=== PATIENT | male | born 1960 | race Hispanic/Latino ===

== ENCOUNTER 2020-03-19 13:41 | Emergency (ER) | payer MEDICAID ==
--- NOTE | 2020-03-19 14:20 | Emergency Department Report ---
Blank Doc - Documentation Documentation: 60-year-old male that presents with depression and stated has not slept for 2 days. HX of psych. Denies any SI/HI. This initial assessment/diagnostic orders/clinical plan/treatment(s) is/are subject to change based on patient's health status, clinical progression and re-assessment by fellow clinical providers in the ED. Further treatment and workup at subsequent clinical providers discretion. Patient/guardians urged not to elope from the ED as their condition may be serious if not clinically assessed and managed. Initial orders include: 1- Patient sent to Main ED for further evaluation and treatment 2- psych workup
[2020-03-19 16:05] LABS: Basophils # (Auto) 0.1 K/mm3 (0.0-0.1); Basophils % (Auto) 0.9 % (0.0-1.8); Eosinophils # (Auto) 0.5 K/mm3 (0.0-0.4); Eosinophils % (Auto) 6.7 % (0.0-4.3); Hematocrit 38.1 % (35.5-45.6); Hemoglobin 12.8 gm/dl (11.8-15.2); Lymphocytes # (Auto) 1.9 K/mm3 (1.2-5.4); Lymphocytes % (Auto) 27.2 % (13.4-35.0); Mean Corpuscular HGB Conc 34 % (32-34); Mean Corpuscular Volume 93 fl (84-94); Monocytes # (Auto) 0.8 K/mm3 (0.0-0.8); Monocytes % (Auto) 11.7 % (0.0-7.3); Platelet Count 247 K/mm3 (140-440); Red Blood Count 4.08 M/mm3 (3.65-5.03); Red Cell Distribution Width 13.4 % (13.2-15.2)
[2020-03-19 16:28] LABS: BUN/Creatinine Ratio 11; Blood Urea Nitrogen 9 mg/dL (9-20); Calcium 10.3 mg/dL (8.4-10.2); Hemolysis Index 7
--- NOTE | 2020-03-19 23:21 | Emergency Department Report ---
ED General Adult HPI - General Chief complaint: Medical Clearance Stated complaint: HARD TIME SLEEPING/PSYCH MEDS Time Seen by Provider: 03/19/20 14:18 Source: patient Mode of arrival: Ambulatory Limitations: No Limitations - History of Present Illness Initial comments: 60 yo M, hx of schizophrenia, presents to ED with complaint of insomnia. Pt states he ran out of the medication that he was taking to help him sleep. Denies SI/ HI, hallucinations. Pt reports that he does have a psychiatrist that he sees. -: days(s) (2), unknown Severity scale (0 -10): 0 Consistency: constant Improves with: medication Worsens with: none Associated Symptoms: denies other symptoms Treatments Prior to Arrival: none - Related Data Allergies Allergy/AdvReac Type Severity Reaction Status Date / Time No Known Allergies Allergy Unverified 03/19/20 14:04 ED Review of Systems ROS: Stated complaint: HARD TIME SLEEPING/PSYCH MEDS Other details as noted in HPI Comment: All other systems reviewed and negative Psychiatric: other (reports insomnia). denies: auditory hallucinations, visual hallucinations, homicidal thoughts, suicidal thoughts ED Past Medical Hx - Past Medical History Previous Medical History?: Yes Hx Psychiatric Treatment: Yes (schizophrenia) - Social History Smoking Status: Never Smoker Substance Use Type: None ED Physical Exam - General Limitations: No Limitations General appearance: alert, in no apparent distress - Head Head exam: Present: atraumatic, normocephalic - Eye Eye exam: Present: normal appearance, EOMI - ENT ENT exam: Present: mucous membranes moist - Neck Neck exam: Present: normal inspection - Respiratory Respiratory exam: Present: normal lung sounds bilaterally. Absent: respiratory distress - Cardiovascular Cardiovascular Exam: Present: regular rate, normal rhythm - GI/Abdominal GI/Abdominal exam: Absent: distended - Extremities Exam Extremities exam: Present: normal inspection - Neurological Exam Neurological exam: Present: alert, oriented X3, other (resting tremor noted) - Psychiatric Psychiatric exam: Present: normal affect, normal mood. Absent: homicidal idea tion, suicidal ideation - Skin Skin exam: Present: warm, dry, intact, normal color ED Course Vital Signs 03/19/20 03/19/20 03/19/20 14:14 14:19 23:15 Temperature 98.4 F 98.4 F 97.9 F Pulse Rate 69 69 74 Respiratory 20 18 18 Rate Blood Pressure 159/83 Blood Pressure 159/83 122/75 [Right] O2 Sat by Pulse 99 100 97 Oximetry ED Medical Decision Making - Lab Data Result diagrams: 03/19/20 15:06 03/19/20 15:06 - Medical Decision Making Pt reports insomnia. No SI, HI, or hallucinations. Advised to f/u as outpt w/ his psychiatrist. - Differential Diagnosis insomnia Critical care attestation.: If time is entered above; I have spent that time in minutes in the direct care of this critically ill patient, excluding procedure time. ED Disposition Clinical Impression: Insomnia Disposition: DC-01 TO HOME OR SELFCARE Is pt being admited?: No Condition: Stable Instructions: Insomnia (ED) Referrals: PRIMARY CARE, [[facility] Care Provider[facility] Time of Disposition: 23:20
[2020-03-20 08:51] VITALS: BP 132/86
== END 2020-03-20 10:56 | disposition home or self-care (01) ==
LOC: ED 13:41
DX: G47.00 Insomnia, unspecified (principal); F20.9 Schizophrenia, unspecified
CPT/HCPCS: 36415; 80048; 80320; 85025; G0480

== ENCOUNTER 2022-04-12 16:02 | Emergency (ER) | payer MEDICAID ==
[2022-04-12 17:57] VITALS: BP 144/96
--- NOTE | 2022-04-12 19:56 | Event Note ---
ED Screening Note ED Screening Note: comes to ER this bianca for assistance with living arrangement no medical complaints no medical emergency This initial assessment/diagnostic orders/clinical plan/treatment(s) is/are subject to change based on patients health status, clinical progression and re- assessment by fellow clinical providers in the ED. Further treatment and workup at subsequent clinical providers discretion. Patient/guardian urged not to elope from the ED as their condition may be serious if not clinically assessed and managed. Initial orders include: MSE WITH LIFT OF SHELTERS
== END 2022-04-13 19:00 | disposition home or self-care (01) ==
LOC: ED 16:02
DX: R53.1 Weakness (principal); Z53.21 Procedure and treatment not carried out due to patient leaving prior to being seen by health care provider

== ENCOUNTER 2022-04-14 10:18 | Emergency (ER) | payer MEDICAID ==
[2022-04-14 11:26] VITALS: BP 109/74
[2022-04-14] MEDS ORDERED: predniSONE 20 MG TAB PO ONE (14:33)
[2022-04-14] MEDS ORDERED: KETOROLAC 10 MG TAB PO ONE (14:33)
[2022-04-14] MEDS ORDERED: CYCLOBENZAPRINE 10 MG TAB PO ONE (14:33)
--- NOTE | 2022-04-14 14:38 | Emergency Department Report ---
ED Back Pain/Injury HPI - General Chief Complaint: Back Pain/Injury Stated Complaint: BACK PAIN/CHRONIC X 2 YEARS Time Seen by Provider: 04/14/22 14:08 Source: patient Limitations: No Limitations - History of Present Illness Initial Comments: 62-year-old white male who denies any medical history at this time presents to the emergency department for evaluation of lower back pain. He states that he has a history of chronic lower back pain, but pain was worse this morning with radiation down his right leg. He denies injury or trauma, urinary symptoms, and fever. MD Complaint: back pain -: Gradual, days(s) (2-3) Similar Symptoms Previously: Yes Radiation: buttocks Severity: severe Severity scale (0 -10): 10 Quality: burning, aching Consistency: constant Worsens With: other (Palpation) Associated Symptoms: denies: confusion, weakness, chest pain, numbness, difficulty walking, cough, difficulty urinating, diaphoresis, incontinence, fever/chills, constipation, headaches, abdominal pain, loss of appetite, malaise, nausea/vomiting, rash, seizure, shortness of breath, syncope - Related Data Previous Rx's Medication Instructions Recorded Last Taken Type Cyclobenzaprine [Flexeril] 10 mg PO TID PRN #30 tab 04/14/22 Unknown Rx Naproxen [Naprosyn] 500 mg PO BID #14 tab 04/14/22 Unknown Rx Prednisone [predniSONE 10 mg 10 mg PO .TAPER #1 pack 04/14/22 Unknown Rx (6-Day Pack, 21 Tabs)] Allergies Allergy/AdvReac Type Severity Reaction Status Date / Time No Known Allergies Allergy Unverified 03/19/20 14:04 ED Review of Systems ROS: Stated complaint: BACK PAIN/CHRONIC X 2 YEARS Other details as noted in HPI Comment: All other systems reviewed and negative Constitutional: denies: chills, fever, malaise, weakness Eyes: denies: vision change ENT: denies: congestion Respiratory: denies: shortness of breath Cardiovascular: denies: chest pain, palpitations Gastrointestinal: denies: abdominal pain, nausea, vomiting Genitourinary: denies: urgency, dysuria, frequency, hematuria, discharge, testicular pain Musculoskeletal: back pain Neurological: denies: headache, weakness ED Past Medical Hx - Past Medical History Hx Psychiatric Treatment: Yes (schizophrenia) - Social History Smoking Status: Never Smoker Substance Use Type: None - Medications Home Medications: Home Medications Medication Instructions Recorded Confirmed Last Taken Type Cyclobenzaprine [Flexeril] 10 mg PO TID PRN #30 tab 04/14/22 Unknown Rx Naproxen [Naprosyn] 500 mg PO BID #14 tab 04/14/22 Unknown Rx Prednisone [predniSONE 10 mg 10 mg PO .TAPER #1 pack 04/14/22 Unknown Rx (6-Day Pack, 21 Tabs)] ED Physical Exam - General Limitations: No Limitations General appearance: alert, in no apparent distress - Head Head exam: Present: atraumatic, normocephalic - Eye Eye exam: Present: normal appearance. Absent: conjunctival injection, periorbital swelling, periorbital tenderness - Neck Neck exam: Present: normal inspection, full ROM. Absent: tenderness, lymphadenopathy - Respiratory Respiratory exam: Absent: respiratory distress - Cardiovascular Cardiovascular Exam: Present: regular rate - GI/Abdominal GI/Abdominal exam: Present: soft, normal bowel sounds. Absent: distended, tenderness, guarding, rebound - Extremities Exam Extremities exam: Present: normal inspection, normal capillary refill. Absent: pedal edema, joint swelling, calf tenderness - Back Exam Back exam: Present: normal inspection. Absent: tenderness, CVA tenderness (R), CVA tenderness (L), vertebral tenderness - Expanded Back Exam Expanded Back exam: Absent: saddle anesthesia Back exam: Positive Straight Leg Raise: Right, Negative Straight Leg Raising: Left - Neurological Exam Neurological exam: Present: alert, oriented X3, normal gait - Psychiatric Psychiatric exam: Present: normal affect, normal mood - Skin Skin exam: Present: warm, dry, intact, normal color ED Course Vital Signs 04/14/22 11:20 Temperature 98.3 F Pulse Rate 84 Respiratory 18 Rate Blood Pressure 109/74 [Right] O2 Sat by Pulse 98 Oximetry ED Medical Decision Making - Medical Decision Making 62-year-old white male who denies any medical history at this time presents to the emergency department for evaluation of lower back pain. He states that he has a history of chronic lower back pain, but pain was worse this morning with radiation down his right leg. He denies injury or trauma, urinary symptoms, and fever. Physical exam unremarkable. Patient will be discharged home with anti- inflammatories, muscle relaxant, steroid pack to take as directed. He is advised to follow-up with his primary care provider or orthopedics for further evaluation and management. He is advised to return to the emergency department as needed. Critical care attestation.: If time is entered above; I have spent that time in minutes in the direct care of this critically ill patient, excluding procedure time. ED Disposition Clinical Impression: Back pain Qualifiers: Back pain location: low back pain Chronicity: chronic Back pain laterality: right Sciatica presence: with sciatica Sciatica laterality: sciatica of right side Qualified Code(s): M54.41 - Lumbago with sciatica, right side; G89.29 - Other chronic pain Disposition: 01 HOME / SELF CARE / HOMELESS Is pt being admited?: No Does the pt Need Aspirin: No Condition: Stable Instructions: Chronic Back Pain, [id number], Sciatica, [id number], Radicular Pain Additional Instructions: Take medications as prescribed. Follow-up with primary care provider or orthopedics for further evaluation if worsening symptoms or no improvement. Return to the emergency department as needed. Prescriptions: Cyclobenzaprine [Flexeril] 10 mg PO TID PRN #30 tab PRN Reason: Muscle Spasm Naproxen [Naprosyn] 500 mg PO BID #14 tab Prednisone [predniSONE 10 mg (6-Day Pack, 21 Tabs)] 10 mg PO .TAPER #1 pack Referrals: JOSELO VELIZ MD [Staff Physician] - 3-5 Days LUIS FERNANDO PRESSLEY MD [Staff Physician] - 3-5 Days Time of Disposition: 14:43
== END 2022-04-14 15:12 | disposition home or self-care (01) ==
LOC: ED 10:18
DX: G89.29 Other chronic pain (principal); M54.50 Low back pain, unspecified
CPT/HCPCS: 99282

== ENCOUNTER 2022-05-09 08:28 | Emergency (ER) | payer MEDICAID ==
[2022-05-09] MEDS ORDERED: predniSONE 20 MG TAB PO ONE (11:49)
[2022-05-09] MEDS ORDERED: ACETAMINOPHEN W/CODEINE 300-30 MG TAB PO ONE (11:49)
[2022-05-09] MEDS ORDERED: KETOROLAC 10 MG TAB PO ONE (11:49)
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
[2022-05-09 13:39] VITALS: BP 138/78
== END 2022-05-09 13:38 | disposition home or self-care (01) ==
LOC: ED 08:28
DX: M25.552 Pain in left hip (principal); M25.551 Pain in right hip; F20.9 Schizophrenia, unspecified; F17.200 Nicotine dependence, unspecified, uncomplicated; W19.XXXA Unspecified fall, initial encounter; Y93.89 Activity, other specified; Y92.89 Other specified places as the place of occurrence of the external cause; Y99.8 Other external cause status
CPT/HCPCS: 99282

== ENCOUNTER 2022-05-19 09:12 | Emergency (ER) | payer MEDICAID ==
[2022-05-19] MEDS ORDERED: NAPROXEN 500 MG TAB PO NR (12:06)
--- NOTE | 2022-05-19 12:13 | Emergency Department Report ---
ED Back Pain/Injury HPI - General Chief Complaint: Extremity Injury, Lower Stated Complaint: BACK/HIP PAIN Time Seen by Provider: 05/19/22 10:44 Source: patient Limitations: No Limitations - History of Present Illness Initial Comments: 62 yo male homeless male with history of schizophrenia, chronic hip pain presents to the emergency department with hip pain. Patient was found outside laying in the building, homeless male, he denies fall or injury, reports he just needs something for his pain. Pain is constant and similar to his previous episodes, he denies fever, no nausea vomiting, no abdominal pain, he is ambulating steadily without assistance. MD Complaint: back pain, other -: Gradual, unknown Similar Symptoms Previously: Yes Radiation: none Quality: aching Consistency: constant Improves With: none Worsens With: movement, walking Context: unknown, other (Chronic) Associated Symptoms: denies other symptoms. denies: confusion, numbness, diaphoresis, rash, shortness of breath - Related Data Previous Rx's Medication Instructions Recorded Last Taken Type Cyclobenzaprine [Flexeril] 10 mg PO TID PRN #30 tab 04/14/22 Unknown Rx Naproxen [Naprosyn] 500 mg PO BID #14 tab 04/14/22 Unknown Rx Prednisone [predniSONE 10 mg 10 mg PO .TAPER #1 pack 04/14/22 Unknown Rx (6-Day Pack, 21 Tabs)] Allergies Allergy/AdvReac Type Severity Reaction Status Date / Time haloperidol Allergy Seizure Verified 05/19/22 09:53 ED Review of Systems ROS: Stated complaint: BACK/HIP PAIN Other details as noted in HPI Constitutional: no symptoms reported Eyes: as per HPI ENT: as per HPI Respiratory: denies: cough Cardiovascular: denies: chest pain Endocrine: denies: intolerance to cold, intolerance to heat Gastrointestinal: denies: abdominal pain, nausea, vomiting Musculoskeletal: back pain, arthralgia. denies: joint swelling, myalgia Skin: denies: rash, lesions Neurological: denies: headache, weakness ED Past Medical Hx - Past Medical History Previous Medical History?: Yes Hx Psychiatric Treatment: Yes (schizophrenia) Additional medical history: Pt is poor historian - Surgical History Additional Surgical History: L hip, L ankle. Pt is poor historian - Social History Smoking Status: Current Every Day Smoker Substance Use Type: None - Medications Home Medications: Home Medications Medication Instructions Recorded Confirmed Last Taken Type Cyclobenzaprine [Flexeril] 10 mg PO TID PRN #30 tab 04/14/22 Unknown Rx Naproxen [Naprosyn] 500 mg PO BID #14 tab 04/14/22 Unknown Rx Prednisone [predniSONE 10 mg 10 mg PO .TAPER #1 pack 04/14/22 Unknown Rx (6-Day Pack, 21 Tabs)] ED Physical Exam - General Limitations: No Limitations General appearance: alert, other (Slender unkept appearing male in no acute distress) - Head Head exam: Present: atraumatic - Eye Eye exam: Present: normal appearance - ENT ENT exam: Present: normal exam, mucous membranes dry - Neck Neck exam: Present: normal inspection. Absent: tenderness - Respiratory Respiratory exam: Present: normal lung sounds bilaterally. Absent: respiratory distress, wheezes - Cardiovascular Cardiovascular Exam: Present: regular rate - GI/Abdominal GI/Abdominal exam: Present: soft, normal bowel sounds - Extremities Exam Extremities exam: Present: normal inspection, full ROM, tenderness - Back Exam Back exam: Present: normal inspection, full ROM - Neurological Exam Neurological exam: Present: alert, oriented X3, normal gait. Absent: motor sensory deficit - Skin Skin exam: Present: warm. Absent: ecchymosis ED Course Vital Signs 05/19/22 09:54 Temperature 97.8 F Pulse Rate 89 Respiratory 20 Rate Blood Pressure 117/87 [Right] O2 Sat by Pulse 100 Oximetry ED Medical Decision Making - Medical Decision Making Acute on chronic hip pain atraumatic. Ambulates without difficulty, pain does not radiates to the abdomen or back ambulating steadily no tenderness. NSAID, discharge with supportive therapy activity modification. Critical care attestation.: If time is entered above; I have spent that time in minutes in the direct care of this critically ill patient, excluding procedure time. ED Disposition Clinical Impression: Chronic hip pain, Homelessness Disposition: HOME / SELF CARE / HOMELESS Is pt being admited?: No Does the pt Need Aspirin: No Condition: Stable Instructions: Chronic Pain (ED), Hip Pain
[2022-05-19] MEDS ORDERED: IBUPROFEN 800 MG TAB PO ONE (13:37)
[2022-05-19 13:54] VITALS: BP 121/90
== END 2022-05-19 13:54 | disposition home or self-care (01) ==
LOC: ED 09:12
DX: G89.29 Other chronic pain (principal); M25.559 Pain in unspecified hip; Z59.00 Homelessness unspecified
CPT/HCPCS: 99282

== ENCOUNTER 2022-05-21 18:49 | Emergency (ER) | payer MEDICAID ==
[2022-05-22] MEDS ORDERED: ACETAMINOPHEN 500 MG TAB PO ONE (11:14)
--- NOTE | 2022-05-22 11:36 | Emergency Department Report ---
HPI - General Chief Complaint: Abdominal Pain PUI?: No Time Seen by Provider: 05/22/22 10:34 - HPI HPI: 62-year-old undomiciled male with chronic hip pain and multiple other medical comorbidities presents for evaluation of what he states is a "flareup" of his chronic left hip pain. Triage note appreciated. However patient repeatedly denies any active abdominal pain and states he did not have any last night or in the past few days. No nausea vomiting fevers or chills. No recent falls or trauma to his back hip or abdomen. Pain currently 2 out of 10. Patient is requesting acetaminophen. ED Past Medical Hx - Past Medical History Previous Medical History?: Yes Hx Psychiatric Treatment: Yes (schizophrenia) Additional medical history: Pt is poor historian - Surgical History Additional Surgical History: L hip, L ankle. Pt is poor historian - Social History Smoking Status: Never Smoker Substance Use Type: None - Medications Home Medications: Home Medications Medication Instructions Recorded Confirmed Last Taken Type Cyclobenzaprine [Flexeril] 10 mg PO TID PRN #30 tab 04/14/22 Unknown Rx Naproxen [Naprosyn] 500 mg PO BID #14 tab 04/14/22 Unknown Rx Prednisone [predniSONE 10 mg 10 mg PO .TAPER #1 pack 04/14/22 Unknown Rx (6-Day Pack, 21 Tabs)] ED Review of Systems ROS: Stated complaint: RT SIDE PAIN Other details as noted in HPI Comment: All other systems reviewed and negative Constitutional: no symptoms reported Physical Exam - Physical Exam Vital Signs: Vital Signs 05/21/22 18:50 Temperature 98.2 F Pulse Rate 101 H Respiratory 18 Rate Blood Pressure 110/70 [Left] O2 Sat by Pulse 100 Oximetry General: Gen: pt is well appearing, no acute distress HEENT: Normocephalic atraumatic pupils equally round and reactive to light extraocular muscles intact sclera anicteric Neck: Full range of motion, no midline spinal tenderness palpation, no JVD, no carotid bruits, no nuchal rigidity CVS: S1-S2 regular rate and rhythm with no gallops rubs or murmurs, chest wall nontender Pulmonary: Clear to auscultation bilaterally, no wheezes rales or rhonchi Abdomen: Soft nondistended nontender no guarding or rebound tenderness, no palpable deformities or step-offs, normal active bowel sounds, no hepatosplenomegaly, no pulsatile masses : Deferred BACK: no midline spinal ttp; no palpable deformities/step offs Extremities: No cyanosis no clubbing no edema, intact distal peripheral pulses, FROM, no morning midline spinal tenderness palpation, no palpable deformities or step-offs; normal internal/external rotation of both hips Integumentary: Skin normal, no petechia no purpura no abscess no lacerations no evidence of trauma no evidence of infection Neuro: Patient is awake alert and oriented to person place time situation, mentating well, cranial nerves II through XII intact, no focal neurodeficits, sensation grossly tact Psych: Calm cooperative, mood affect normal ED Course Vital Signs 05/21/22 18:50 Temperature 98.2 F Pulse Rate 101 H Respiratory 18 Rate Blood Pressure 110/70 [Left] O2 Sat by Pulse 100 Oximetry - Reevaluation(s) Reevaluation #1: 05/22/22 11:34 pt is asleep, but easily arousable; asking for food; moving all extremities, nad ED Medical Decision Making - Medical Decision Making 62yo undomiciled male presents for evaluation what he states is an exacerbation of his underlying chronic left hip pain. Vital signs stable. Physical exam is grossly unremarkable. Patient has no overt evidence of trauma or infection involving his left hip. He denies any other symptoms to me repeatedly during multiple reassessment. His abdomen is soft nondistended nontender without guarding or rebound tenderness. He was given acetaminophen per his request. He is ambulating here with normal steady gait. Patient deemed stable for disc harge to home. No further emergent work-up warranted. Prior to discharge, patient was given strict verbal and written return precautions Critical care attestation.: If time is entered above; I have spent that time in minutes in the direct care of this critically ill patient, excluding procedure time. ED Disposition Clinical Impression: Chronic left hip pain Disposition: HOME / SELF CARE / HOMELESS Is pt being admited?: No Does the pt Need Aspirin: No Condition: Stable Additional Instructions: Take over the counter acetaminophen as needed for pain. Follow up with your primary care doctor for pain management. Return if you develop inability to walk, any fever of 100.4F or higher, or if any other new worrisome symptoms develop. Referrals: GRACIELA LEW MD [Staff Physician] - 3-5 Days
[2022-05-22 12:18] VITALS: BP 110/85
== END 2022-05-22 12:19 | disposition home or self-care (01) ==
LOC: ED 18:49
DX: G89.29 Other chronic pain (principal); M25.552 Pain in left hip; F20.9 Schizophrenia, unspecified
CPT/HCPCS: 99282; 99283

== ENCOUNTER 2022-05-29 10:56 | Emergency (ER) | payer MEDICAID ==
--- NOTE | 2022-05-29 11:46 | Emergency Department Report ---
Stated Complaint: VOMITTING - HPI History of Present Illness: 62-year-old male was found outside of [facility], [place] ER department complaints of shivering and and vomiting up fluid. Patient reports feeling weak - ROS Review of Systems: Weakness. Vomiting. MSE screening note: Focused history and physical exam performed. Due to findings the following was ordered: MSE has been completed. Orders placed. Patient pending further evaluation to be seen in the back. My Active Orders 05/29/22 11:44 Complete Blood Count Auto Diff Stat Comprehensive Metabolic Panel Stat Urinalysis Complete Stat 05/29/22 11:45 ETHYLENE GLYCOL, BLOOD Stat ED Disposition for MSE Condition: Stable
[2022-05-29 12:19] LABS: Basophils % (Auto) 0.6 % (0.0-1.8); Eosinophils % (Auto) 0.6 % (0.0-4.3); Hematocrit 33.5 % (35.5-45.6); Hemoglobin 11.8 gm/dl (11.8-15.2); Lymphocytes # (Auto) 1.8 K/mm3 (1.2-5.4); Mean Corpuscular HGB Conc 35 % (32-34); Mean Corpuscular Volume 87 fl (84-94); Monocytes # (Auto) 0.6 K/mm3 (0.0-0.8); Monocytes % (Auto) 12.5 % (0.0-7.3); Platelet Count 362 K/mm3 (140-440); Red Blood Count 3.84 M/mm3 (3.65-5.03); Red Cell Distribution Width 12.9 % (13.2-15.2)
[2022-05-29 12:43] LABS: Alanine Aminotransferase 46 units/L (7-56); Albumin 4.1 g/dL (3.9-5); BUN/Creatinine Ratio 15; Blood Urea Nitrogen 12 mg/dL (9-20); Calcium 9.4 mg/dL (8.4-10.2); Hemolysis Index 4
[2022-05-29] MEDS ORDERED: SODIUM CHLORIDE 0.9% 1000 ML 1,000 ML IV ONE (16:20)
--- NOTE | 2022-05-29 17:45 | Emergency Department Report ---
ED General Adult HPI - General Chief complaint: Nausea/Vomiting/Diarrhea Stated complaint: VOMITTING Source: patient Mode of arrival: Wheelchair Limitations: No Limitations - History of Present Illness Initial comments: 32-year-old male presents to the ED complaining right chronic hip pain. Patient states that he is currently homeless and has to lay on the concrete ground which is causing him to have hip pain . Patient was evaluated 5 days ago for the same exact complaint. At present time patient denies any weakness nausea or vomiting at present time. Patient states that he need care home. Patient is alert and oriented x3. No acute distress noted. Patient is maln[place] shed looking. No ill appearance noted. - Related Data Previous Rx's Medication Instructions Recorded Last Taken Type Cyclobenzaprine [Flexeril] 10 mg PO TID PRN #30 tab 04/14/22 Unknown Rx Naproxen [Naprosyn] 500 mg PO BID #14 tab 04/14/22 Unknown Rx Prednisone [predniSONE 10 mg 10 mg PO .TAPER #1 pack 04/14/22 Unknown Rx (6-Day Pack, 21 Tabs)] Allergies Allergy/AdvReac Type Severity Reaction Status Date / Time haloperidol Allergy Seizure Verified 05/19/22 09:53 ED Review of Systems ROS: Stated complaint: VOMITTING Other details as noted in HPI Constitutional: denies: chills, fever Eyes: denies: eye pain, eye discharge, vision change ENT: denies: ear pain, throat pain Respiratory: denies: cough, shortness of breath, wheezing Cardiovascular: denies: chest pain, palpitations Endocrine: no symptoms reported Gastrointestinal: denies: abdominal pain, nausea, diarrhea Genitourinary: denies: urgency, dysuria Musculoskeletal: denies: back pain, joint swelling, arthralgia Skin: denies: rash, lesions Neurological: denies: headache, weakness, paresthesias Psychiatric: denies: anxiety, depression Hematological/Lymphatic: denies: easy bleeding, easy bruising ED Past Medical Hx - Past Medical History Hx Psychiatric Treatment: Yes (schizophrenia) Additional medical history: Pt is poor historian - Surgical History Additional Surgical History: L hip, L ankle. Pt is poor historian - Social History Smoking Status: Former Smoker Substance Use Type: Alcohol, Marijuana - Medications Home Medications: Home Medications Medication Instructions Recorded Confirmed Last Taken Type Cyclobenzaprine [Flexeril] 10 mg PO TID PRN #30 tab 04/14/22 Unknown Rx Naproxen [Naprosyn] 500 mg PO BID #14 tab 04/14/22 Unknown Rx Prednisone [predniSONE 10 mg 10 mg PO .TAPER #1 pack 04/14/22 Unknown Rx (6-Day Pack, 21 Tabs)] ED Physical Exam - General Limitations: No Limitations General appearance: alert, in no apparent distress - Head Head exam: Present: atraumatic, normocephalic - Eye Eye exam: Present: normal appearance - ENT ENT exam: Present: mucous membranes moist - Neck Neck exam: Present: normal inspection - Respiratory Respiratory exam: Present: normal lung sounds bilaterally. Absent: respiratory distress - Cardiovascular Cardiovascular Exam: Present: regular rate, normal rhythm. Absent: systolic murmur, diastolic murmur, rubs, gallop - GI/Abdominal GI/Abdominal exam: Present: soft, normal bowel sounds - Rectal Rectal exam: Present: deferred - Extremities Exam Extremities exam: Present: normal inspection - Back Exam Back exam: Present: normal inspection - Neurological Exam Neurological exam: Present: alert, oriented X3 - Psychiatric Psychiatric exam: Present: normal affect, normal mood - Skin Skin exam: Present: warm, dry, intact, normal color. Absent: rash ED Course Vital Signs 05/29/22 11:40 Temperature 98.7 F Pulse Rate 97 H Respiratory 18 Rate Blood Pressure 104/75 [Left] O2 Sat by Pulse 99 Oximetry ED Medical Decision Making - Lab Data Result diagrams: 05/29/22 11:53 05/29/22 11:53 - Medical Decision Making 32-year-old male presents to the ED complaining right chronic hip pain. Patient states that he is currently homeless and has to lay on the concrete ground which is causing him to have hip pain . Patient was evaluated 5 days ago for the same exact complaint. At present time patient denies any weakness nausea or vomiting at present time. Patient states that he need care home. Patient is alert and oriented x3. No acute distress noted. Patient is malnourished lookin g. No ill appearance noted. Patient given normal saline 1 L. Rechecked the patient is resting quietly , comfortable and feeling better. I discussed the results of diagnostic study, my clinical impression and the plan for further treatment with the patient. Patient agrees with plan and discharge at this present time. All question addressed. I have given the patient instruction regarding a diagnosis ,expectation ,follow- up and return precaution. I explained to the patient that emergent condition may arise and to return to the ED for new worsen and any new persisting condition. I have explained the importance of following up with the primary care physician or referral physician listed below has instructed. The patient verbalized understanding of discharge instruction. Abnormal Lab Results 05/29/22 05/29/22 11:53 11:53 WBC 4.7 RBC 3.84 Hgb 11.8 Hct 33.5 L MCV 87 MCH 31 MCHC 35 H RDW 12.9 L Plt Count 362 Lymph % (Auto) 38.0 H Hill % (Auto) 12.5 H Eos % (Auto) 0.6 Baso % (Auto) 0.6 Lymph # (Auto) 1.8 Hill # (Auto) 0.6 Eos # (Auto) 0.0 Baso # (Auto) 0.0 Seg Neutrophils % 48.3 Seg Neutrophils # 2.3 Sodium 129 L Potassium 4.1 Chloride 92.7 L Carbon Dioxide 23 Anion Gap 17 BUN 12 Creatinine 0.8 Estimated GFR > 60 BUN/Creatinine Ratio 15 Glucose 105 H Calcium 9.4 Total Bilirubin 0.60 AST 53 H ALT 46 Alkaline Phosphatase 95 Total Protein 7.1 Albumin 4.1 Albumin/Globulin Ratio 1.4 Critical care attestation.: If time is entered above; I have spent that time in minutes in the direct care of this critically ill patient, excluding procedure time. ED Disposition Clinical Impression: Hip pain Disposition: 01 HOME / SELF CARE / HOMELESS Is pt being admited?: No Does the pt Need Aspirin: No Condition: Stable Instructions: Hip Pain Additional Instructions: Please see additional resources given and handout for care home placement Referrals: [facility] [Provider Group] - 3-5 Days
[2022-05-29 20:22] VITALS: BP 139/98
== END 2022-05-29 20:22 | disposition home or self-care (01) ==
LOC: ED 10:56
DX: M25.551 Pain in right hip (principal)
CPT/HCPCS: 36415; 80053; 82693; 85025; 96360; 99283; J7030

== ENCOUNTER 2022-06-03 09:14 | Emergency (ER) | payer MEDICAID ==
[2022-06-03 10:12] VITALS: BP 103/74
--- NOTE | 2022-06-03 10:25 | Event Note ---
ED Screening Note ED Screening Note: [facility] asking for trazadone and klonopin difficult to understand his words rocking back and forth pos si "shoot myself" no hi pt is homeless has many ER visits for medical complaints hes been sleeping on the ground in the front of the hospital This initial assessment/diagnostic orders/clinical plan/treatment(s) is/are subject to change based on patients health status, clinical progression and re- assessment by fellow clinical providers in the ED. Further treatment and workup at subsequent clinical providers discretion. Patient/guardian urged not to elope from the ED as their condition may be serious if not clinically assessed and managed. Initial orders include: e social service
--- NOTE | 2022-06-03 12:03 | Consultation ---
History of Present Illness - Reason for Consult Consult date: 06/03/22 Reason for consult: SI - History of Present Psychiatric Illness The patient was seen today. His speech is garbled, and he is difficult to understand. He has poor insight and is a poor historian. I have to ask him the same question several times. He is fidgety and rocking back and forth. He says "I don't feel good." The patient says he tried to commit suicide by taking some pills. He says "I'm homeless and I don't have no family to help me." He then says "I'll do it again. I take some pills." The patient says he is constantly hearing voices of people talking to him "morning and night." He says "I keep hearing them, and when I look there is nobody there. I don't know what they are saying but they keep trying to talk to me." He denies any illicit drug use, or alcohol. PAST PSYCHIATRIC HISTORY: Unable to assess PAST MEDICAL HISTORY: unknown Family Psychiatric History: None reported or documented SOCIAL HISTORY Unable to assess REVIEW OF SYSTEMS Unable to assess MENTAL STATUS EXAMINATION Unable to assess Assessment (1) Major Depressive Disorder Treatment Plan 1013 Start Olanzapine 5mg po daily Start Trazodone 50mg po qhs Medical: per primary Sitter: Defer to primary Disposition: Recommend acute psychiatric inpatient treatment Will follow. Thanks Case staffed with Dr. Marquez Medications and Allergies Allergies Allergy/AdvReac Type Severity Reaction Status Date / Time haloperidol Allergy Seizure Verified 06/03/22 10:13 Mental Status Exam - Vital signs Last Vital Signs Temp 97.7 F 06/03/22 10:11 Pulse 105 H 06/03/22 10:11 Resp 20 06/03/22 10:11 BP 103/74 06/03/22 10:11 Pulse Ox 100 06/03/22 10:11 Results All other labs normal.
[2022-06-03 12:09] LABS: Basophils # (Auto) 0.1 K/mm3 (0.0-0.1); Basophils % (Auto) 1.2 % (0.0-1.8); Eosinophils % (Auto) 0.5 % (0.0-4.3); Hematocrit 34.8 % (35.5-45.6); Hemoglobin 11.5 gm/dl (11.8-15.2); Lymphocytes # (Auto) 1.7 K/mm3 (1.2-5.4); Lymphocytes % (Auto) 35.4 % (13.4-35.0); Mean Corpuscular HGB Conc 33 % (32-34); Mean Corpuscular Volume 88 fl (84-94); Monocytes # (Auto) 0.4 K/mm3 (0.0-0.8); Platelet Count 386 K/mm3 (140-440); Red Blood Count 3.93 M/mm3 (3.65-5.03)
--- NOTE | 2022-06-03 12:17 | Emergency Department Report ---
ED General Adult HPI - General Chief complaint: Psych Stated complaint: I am suicidal. My hip hurts me. Time Seen by Provider: 06/03/22 10:16 Source: patient, RN notes reviewed Mode of arrival: Ambulatory Limitations: No Limitations - History of Present Illness Initial comments: The patient was evaluated in the emergency department for symptoms described in the history of present illness. He/she was evaluated in the context of the global COVID-19 pandemic, which necessitated consideration that the patient might be at risk for infection with the virus that causes COVID-19. Institutional protocols and algorithms that pertain to the evaluation of patients at risk for COVID-19 are in a state of rapid change based on information released by regulatory bodies including the CDC and federal and state organizations. These policies and algorithms were followed during the patient's care in the emergency department. Please note that these policies, procedures and recommendations changed on a rapid basis. This patient is a 62-year-old gentleman presenting with a complaint of suicidality and plan to overdose. He appears to be homeless. He endorses chronic left-sided hip pain. The patient does not endorse any additional complaints. He is not homicidal. The patient makes no complaint of hallucinations. The patient states that he walked here. He makes no endorsement of urinary symptoms. Patient has had frequent visits to this department for chronic musculoskeletal hip pain -: This morning Location: right, lower extremity Severity scale (0 -10): 10 Consistency: constant Improves with: rest Worsens with: movement - Related Data Allergies Allergy/AdvReac Type Severity Reaction Status Date / Time haloperidol Allergy Seizure Verified 06/03/22 10:13 ED Review of Systems ROS: Stated complaint: BACK PAIN Other details as noted in HPI Constitutional: denies: fever Eyes: denies: eye discharge ENT: denies: epistaxis Respiratory: denies: cough, shortness of breath Cardiovascular: denies: chest pain Gastrointestinal: denies: abdominal pain Musculoskeletal: arthralgia, myalgia Neurological: denies: weakness Psychiatric: suicidal thoughts. denies: auditory hallucinations, visual hallucinations ED Past Medical Hx - Past Medical History Hx Psychiatric Treatment: Yes (schizophrenia) Additional medical history: Pt is poor historian - Surgical History Additional Surgical History: L hip, L ankle. Pt is poor historian - Social History Smoking Status: Former Smoker Substance Use Type: Alcohol, Marijuana ED Physical Exam - General Limitations: Other (Patient is disorganized and a poor historian) General appearance: alert, in no apparent distress - Head Head exam: Present: atraumatic, normocephalic - Eye Eye exam: Present: normal appearance, EOMI. Absent: nystagmus - ENT ENT exam: Present: normal exam, mucous membranes moist, normal external ear exam, other (Poor dentition is noted) - Neck Neck exam: Present: normal inspection, full ROM. Absent: tenderness, meningismus - Respiratory Respiratory exam: Present: normal lung sounds bilaterally. Absent: respiratory distress, wheezes, rhonchi, stridor, decreased breath sounds - Cardiovascular Cardiovascular Exam: Present: normal rhythm, tachycardia, normal heart sounds. Absent: bradycardia, irregular rhythm, systolic murmur, diastolic murmur, rubs, gallop - GI/Abdominal GI/Abdominal exam: Present: soft. Absent: distended, tenderness, guarding, r ebound, rigid, pulsatile mass - Rectal Rectal exam: Present: deferred - Extremities Exam Extremities exam: Present: normal inspection, full ROM, other (2+ pulses noted in the bilateral upper and lower extremities. There is no palpable cord. negative Homans sign. Muscular compartments are soft. The pelvis is stable.). Absent: pedal edema, calf tenderness - Back Exam Back exam: Present: normal inspection. Absent: tenderness, CVA tenderness (R), CVA tenderness (L), paraspinal tenderness, vertebral tenderness - Neurological Exam Neurological exam: Present: alert, normal gait, other (There is no facial droop. The tongue is midline. EOMI. 5 out of 5 strength in 4 extremities. Sensation is intact to light touch in 4 extremities.). Absent: motor sensory deficit - Psychiatric Psychiatric exam: Present: suicidal ideation - Skin Skin exam: Present: warm, dry, intact, normal color. Absent: rash ED Course Vital Signs 06/03/22 10:11 Temperature 97.7 F Pulse Rate 105 H Respiratory 20 Rate Blood Pressure 103/74 [Right] O2 Sat by Pulse 100 Oximetry ED Medical Decision Making - Lab Data Result diagrams: 06/03/22 11:41 06/03/22 11:41 Vital Signs 06/03/22 10:11 Temperature 97.7 F Pulse Rate 105 H Respiratory 20 Rate Blood Pressure 103/74 [Right] O2 Sat by Pulse 100 Oximetry Lab Results 06/03/22 06/03/22 06/03/22 Range/Units 11:41 11:41 11:41 WBC 4.7 (4.5-11.0) K/mm3 RBC 3.93 (3.65-5.03) M/mm3 Hgb 11.5 L (11.8-15.2) gm/dl Hct 34.8 L (35.5-45.6) % MCV 88 (84-94) fl MCH 29 (28-32) pg MCHC 33 (32-34) % RDW 13.0 L (13.2-15.2) % Plt Count 386 (140-440) K/mm3 Lymph % (Auto) 35.4 H (13.4-35.0) % [place] % (Auto) 8.0 H (0.0-7.3) % Eos % (Auto) 0.5 (0.0-4.3) % Baso % (Auto) 1.2 (0.0-1.8) % Lymph # (Auto) 1.7 (1.2-5.4) K/mm3 [place] # (Auto) 0.4 (0.0-0.8) K/mm3 Eos # (Auto) 0.0 (0.0-0.4) K/mm3 Baso # (Auto) 0.1 (0.0-0.1) K/mm3 Seg Neutrophils % 54.9 (40.0-70.0) % Seg Neutrophils # 2.6 (1.8-7.7) K/mm3 Sodium 130 L (137-145) mmol/L Potassium 4.8 (3.6-5.0) mmol/L Chloride 94.5 L (98-107) mmol/L Carbon Dioxide 22 (22-30) mmol/L Anion Gap 18 mmol/L BUN 15 (9-20) mg/dL Creatinine 0.9 (0.8-1.3) mg/dL Estimated GFR > 60 ml/min BUN/Creatinine Ratio 17 % Glucose 102 H (75-100) mg/dL Calcium 9.4 (8.4-10.2) mg/dL Total Bilirubin 0.50 (0.1-1.2) mg/dL AST 38 (5-40) units/L ALT 37 (7-56) units/L Alkaline Phosphatase 96 (35-129) units/L Total Protein 6.9 (6.3-8.2) g/dL Albumin 3.9 (3.9-5) g/dL Albumin/Globulin Ratio 1.3 % Salicylates < 0.3 L (2.8-20.0) mg/dL Acetaminophen (10.0-30.0) ug/mL Plasma/Serum Alcohol (0-0.07) % 06/03/22 06/03/22 Range/Units 11:41 11:41 WBC (4.5-11.0) K/mm3 RBC (3.65-5.03) M/mm3 Hgb (11.8-15.2) gm/dl Hct (35.5-45.6) % MCV (84-94) fl MCH (28-32) pg MCHC (32-34) % RDW (13.2-15.2) % Plt Count (140-440) K/mm3 Lymph % (Auto) (13.4-35.0) % [place] % (Auto) (0.0-7.3) % Eos % (Auto) (0.0-4.3) % Baso % (Auto) (0.0-1.8) % Lymph # (Auto) (1.2-5.4) K/mm3 [place] # (Auto) (0.0-0.8) K/mm3 Eos # (Auto) (0.0-0.4) K/mm3 Baso # (Auto) (0.0-0.1) K/mm3 Seg Neutrophils % (40.0-70.0) % Seg Neutrophils # (1.8-7.7) K/mm3 Sodium (137-145) mmol/L Potassium (3.6-5.0) mmol/L Chloride (98-107) mmol/L Carbon Dioxide (22-30) mmol/L Anion Gap mmol/L BUN (9-20) mg/dL Creatinine (0.8-1.3) mg/dL Estimated GFR ml/min BUN/Creatinine Ratio % Glucose (75-100) mg/dL Calcium (8.4-10.2) mg/dL Total Bilirubin (0.1-1.2) mg/dL AST (5-40) units/L ALT (7-56) units/L Alkaline Phosphatase (35-129) units/L Total Protein (6.3-8.2) g/dL Albumin (3.9-5) g/dL Albumin/Globulin Ratio % Salicylates (2.8-20.0) mg/dL Acetaminophen 5.0 L (10.0-30.0) ug/mL Plasma/Serum Alcohol < 0.01 (0-0.07) % - Medical Decision Making Differential diagnosis, including but not limited to: Malingering, homelessness, secondary gain, chronic left-sided hip pain Assessment and plan: 62-year-old gentleman, who is afebrile, with reassuring vital signs, who reports that he walked here, because he is homeless, and roldan icidal. I suspect that this patient is malingering for the purposes of secondary gain, food, intermediate, and housing. The psychiatric team have recommended initiation of a 1013, which I will order and initiate, although, placing this patient on a 1013 and involuntary confinement will serve to reinfor ce maladaptive coping mechanisms and behaviors, such as seeking intermediate, food, and necessities in the emergency room, when faced with challenging life circumstances. The patient has a nonfocal motor exam and is moving 4 extremities, and is ambulatory with a steady gait. The hips are nontender, without redness, pus or streaking, and do not have significant pain with passive range of motion. COVID swab ordered in anticipation of psychiatric placement, and we are currently awaiting a urinalysis and drug screen. Please note that these tests are not required to exclude emergent medical conditions at this time. Emergency room will follow along as the patient provides a COVID swab, urinalysis, and urine drug screen. At this point in time, this patient does not appear to have an immediate medical contraindication to psychiatric admission, evaluation, consultation and placement. Psychiatric recommendations are reviewed and appreciated. Critical care attestation.: If time is entered above; I have spent that time in minutes in the direct care of this critically ill patient, excluding procedure time. ED Disposition Clinical Impression: Chronic left hip pain, Homelessness, Medical clearance for psychiatric admission Disposition: [address] [place] [address] Is pt being admited?: No Does the pt Need Aspirin: No Condition: Good Additional Instructions: HOMELESS RESOURCES: [facility] NEED HELP? If you are in need of help or know someone who does, please contact us at [email or web address] Trendsor call , or come to our offices at [address] [facility], [place] [address], Tuesday-Tuesday beginning 9:30 AM-1:30 PM -Support services help people with getting identification and legal documents -Homeless verification letter -Facesheet (if needed) [facility] Males only Admission at 7am Mon to Tue Address: [address] [place] [address] Client Engagement [phone] Regular program admission occurs Tuesday through Tuesday at 7:00 amand operates on a first come, first serve basis.Because we cant anticipate program availa bility in advance andprogram spots are in high demand, we recommend arriving early. Space fills up fast! Next steps can include: Assignment to a [facility] program bed Connection to and placement in a partner program, or Referral to a partner agency [facility] only Admission at 4:30pm daily Address: [address] [place] [address] [facility] Admission from 8am to 10am Daily Address: [address] [place] [address] OUTPATIENT MENTAL HEALTH RESOURCES [facility], [facility] Javid Sukhdev MD: [address] [address], [address] [place] [address] [place] [address] [place] [facility]: [facility] [address] [place] [address] [place] [address] [phone] [facility]: [facility]: [address] [facility] [address] [facility] [place] [address] [facility] [address] [place] [facility]: Deshawn Browne MD: [id number] [facility] [address] [facility] [id number] [facility]: [address] [place], [place] [address]ate [place], [place] [id number] [phone] [place] CRISIS AND ACCESS LINE:
[2022-06-03 12:25] LABS: Alanine Aminotransferase 37 units/L (7-56); Albumin 3.9 g/dL (3.9-5); BUN/Creatinine Ratio 17; Blood Urea Nitrogen 15 mg/dL (9-20); Calcium 9.4 mg/dL (8.4-10.2); Hemolysis Index 49
[2022-06-03] MEDS ORDERED: ONDANSETRON 4 MG ODT TAB PO PRN (13:49)
[2022-06-03] MEDS ORDERED: MIDAZOLAM 2 MG/2 ML INJ IM PRN (13:49)
[2022-06-03] MEDS ORDERED: IBUPROFEN 200 MG TAB PO PRN (13:49)
[2022-06-03] MEDS ORDERED: ZIPRASIDONE MESYLATE 20 MG VIAL IM PRN (13:49)
[2022-06-03 15:12] LABS: Amphetamine Screen,Urine Negative; Benzodiazepines Screen,Urine Negative; Cannabinoid Screen,Urine Negative; Cocaine Screen,Urine Negative; Methadone Screen,Urine Negative; Opiate Screen,Urine Negative
[2022-06-03 15:24] LABS: Bacteria,Urine 1+ /HPF (Negative)
[2022-06-03 15:34] LABS: Color,Urine Straw (Yellow)
[2022-06-03] MEDS ORDERED: traZODone 50 MG TAB PO SCH (22:00)
== END 2022-06-03 17:53 | disposition home or self-care (01) ==
LOC: ED 09:14
DX: M25.552 Pain in left hip (principal); Z13.30 Encounter for screening examination for mental health and behavioral disorders, unspecified; F20.9 Schizophrenia, unspecified; Z59.00 Homelessness unspecified; Z87.891 Personal history of nicotine dependence; Z91.09 Other allergy status, other than to drugs and biological substances
CPT/HCPCS: 36415; 80053; 80307; 80320; 81001; 85025; 99283; G0480; U0003

== ENCOUNTER 2022-06-03 16:59 | Inpatient (IN) | payer MEDICAID ==
--- NOTE | 2022-06-04 08:23 | History and Physical Report ---
GP History & Physical - History of Present Illness Date of admission: 06/04/22 Date of Examination: 06/04/22 Reason for Admission: Danger to self, Danger to others, Failure of Outpatient Treatment History of Present Illness: The patient is a 62 year old male with history of Schizophrenia who admitted via the ED with suicidal ideation. The patient was seen today. The patient presents with speech impediment and difficult to understand. The patient is paranoid " feeling like people are after me. " The patient also reports having auditory hallucinations " I hear people when I wake up, I have to look around." The patient denies any current suicidal/homicidal ideation and denies visual hallucinations. PAST PSYCHIATRIC HISTORY: Diagnoses: schizophrenia MDD Suicide attempts or Self-harm behavior:Yes Prior psychiatric hospitalizations: Yes Substance Abuse history: Cocaine, Oxycodone, "Speed" Previous psychiatric medications tried: Unable to recall Outpatient treatment: Denies PAST MEDICAL HISTORY: high cholesterol Family Psychiatric History: None reported or documented SOCIAL HISTORY Marital Status: Living Arrangements: Homeless Employment Status: Unemployed Access to guns/weapons: Denies Education: 10th grade History of Abuse:Denies Legal History: Denies REVIEW OF SYSTEMS Constitutional: Negative for weight loss ENT: Negative for stridor Respiratory: Negative for cough or hemoptysis All other systems reviewed and are negative MENTAL STATUS EXAMINATION General Appearance and Behavior: Age appropriate, wearing appropriate clothes, cooperative, polite with questioning, good eye contact Cooperation: cooperative Psychomotor Behavior: Psychomotor normal Mood: depressed Affect and affective range: congruent with stated affect Thought Process: circumstantial Thought Content: hallucinations/ paranoid Speech: Normal volume, Regular rate and rhythm Suicidal Ideation: Denies Homicidal Ideation: Denies Hallucination: Auditory Delusions: None Impulse Control: Limited Insight and Judgment: Limited Memory: Intact Attention: attentive Orientation: Alert and oriented Diagnosis: Schizophrenia Disorder Treatment Plan Patient admitted for inpatient psychiatric evaluation, medication adjustment and close monitoring The patient's behavior, mood, sleep and appetite will be closely monitored. Patient enrolled in individual and group therapeutic sessions and encouraged to attend. Patient provided with a safe and structured environment. Patient's physical health needs will be addressed by the Hospitalist. Hospitalist Consulted Labs including CBC, CMP, Lipid profile and Hemoglobin A1C levels ordered for b aseline reference Social Assessment will be completed and the Parachute Rigger will work with patient and family to ensure a suitable and safe disposition Medication adjustment will be made as clinically indicated Continue home meds Usual Wellness Synagogue/Preservation: - Start Trazodone 50 mg po QHS & 50 mg po QHS PRN between 10 PM & 2 AM for insomnia - Start Melatonin 5 mg po QHS to promote circadian rhythm The patient agreed on the treatment plan, understood the risk, benefit, alternative treatment, potential consequence of no treatment, and gave informed consent. Estimated days: 7 Post hospital care: primary care provider, psychiatric provider Case staffed with Dr. Marquez Legal Status: Voluntary Reaction to Hospitalization: Accepting Medications and Allergies Allergies Allergy/AdvReac Type Severity Reaction Status Date / Time haloperidol Allergy Seizure Verified 06/03/22 10:13 Home Medications Medication Instructions Recorded Confirmed Last Taken Type Atorvastatin [Lipitor Tab] 40 mg PO 06/04/22 Unknown History Cyclobenzaprine [Flexeril] 10 mg PO TID PRN 06/04/22 06/04/22 Unknown History Memantine HCl 5 mg PO 06/04/22 Unknown History Multivit-Min/FA/Lycopen/Lutein 06/04/22 Unknown History [Certavite Senior Tablet] Naproxen [Naprosyn] 500 mg PO BID 06/04/22 06/04/22 Unknown History Omeprazole 20 mg PO 06/04/22 Unknown History amantadine HCL [Amantadine] 100 mg PO 06/04/22 Unknown History donepeziL [Aricept] 10 mg PO 06/04/22 Unknown History levETIRAcetam [Keppra TAB] 500 mg PO 06/04/22 Unknown History traZODone [Desyrel] 100 mg PO 06/04/22 Unknown History Results - Results Labs/Vitals: Last Vital Signs Temp 98.6 F 06/04/22 00:00 Pulse 95 H 06/04/22 00:00 Resp 17 06/04/22 00:00 BP 117/57 06/04/22 00:00 Pulse Ox Physical Examination - Constitutional Vitals: Vital Signs Temp Pulse Resp BP Pulse Ox 98.6 F 95 H 17 117/57 06/04/22 00:00 06/04/22 00:00 06/04/22 00:00 06/04/22 00:00 Temperature -Last 24 Hours Temperature 98.6 F Mental Status Exam - Vital signs Last Vital Signs Temp 98.6 F 06/04/22 00:00 Pulse 95 H 06/04/22 00:00 Resp 17 06/04/22 00:00 BP 117/57 06/04/22 00:00 Pulse Ox Physician Certification - Certification Statement Physician Certification Statement: This is an acknowledgement statement that ROSALINDA GIL is a 62 year old M who requires inpatient psychiatric admission for treatment which could reasonably be expected to improve the patient's condition for Estimated period of time patient will need to remain in the hospital: [ ] Plan for post-hospital care: [ ]
--- NOTE | 2022-06-04 09:42 | Consultation ---
Medications and Allergies Allergies Allergy/AdvReac Type Severity Reaction Status Date / Time haloperidol Allergy Seizure Verified 06/03/22 10:13 Home Medications Medication Instructions Recorded Confirmed Last Taken Type Atorvastatin [Lipitor Tab] 40 mg PO 06/04/22 Unknown History Cyclobenzaprine [Flexeril] 10 mg PO TID PRN 06/04/22 06/04/22 Unknown History Memantine HCl 5 mg PO 06/04/22 Unknown History Multivit-Min/FA/Lycopen/Lutein 06/04/22 Unknown History [Certavite Senior Tablet] Naproxen [Naprosyn] 500 mg PO BID 06/04/22 06/04/22 Unknown History Omeprazole 20 mg PO 06/04/22 Unknown History amantadine HCL [Amantadine] 100 mg PO 06/04/22 Unknown History donepeziL [Aricept] 10 mg PO 06/04/22 Unknown History levETIRAcetam [Keppra TAB] 500 mg PO 06/04/22 Unknown History traZODone [Desyrel] 100 mg PO 06/04/22 Unknown History Exam - Constitutional Vitals: Temp Pulse Resp BP Pulse Ox 98.6 F 95 H 17 117/57 06/04/22 00:00 06/04/22 00:00 06/04/22 00:00 06/04/22 00:00
[2022-06-04 10:31] LABS: Basophils % (Auto) 0.4 % (0.0-1.8); Eosinophils % (Auto) 0.5 % (0.0-4.3); Hematocrit 34.7 % (35.5-45.6); Hemoglobin 11.6 gm/dl (11.8-15.2); Lymphocytes % (Auto) 22.5 % (13.4-35.0); Mean Corpuscular HGB Conc 34 % (32-34); Mean Corpuscular Volume 88 fl (84-94); Monocytes # (Auto) 0.5 K/mm3 (0.0-0.8); Monocytes % (Auto) 11.8 % (0.0-7.3); Platelet Count 431 K/mm3 (140-440); Red Blood Count 3.94 M/mm3 (3.65-5.03); Red Cell Distribution Width 13.3 % (13.2-15.2)
[2022-06-04 11:00] LABS: Alanine Aminotransferase 36 units/L (7-56); Albumin 3.8 g/dL (3.9-5); BUN/Creatinine Ratio 17; Blood Urea Nitrogen 15 mg/dL (9-20); Calcium 9.5 mg/dL (8.4-10.2); Chol/HDL Ratio 2.22 %; HDL Cholesterol 50 mg/dL (40-59); Hemolysis Index 5; LDL Cholesterol,Direct 49 mg/dL (50-130)
--- NOTE | 2022-06-04 16:24 | Consultation ---
History of Present Illness - Reason for Consult Consult date: 06/04/22 Medical Management Requesting physician: JOSÉ LUIS CLANCY - History of Present Illness 62 YO Male with Vascular Dementia with Behavioral Disturbance, Cerebral Atherosclerosis, HTN, HLD, GERD, Seizure Disorder, MDD admitted to [facility] for psychiatric stabilization. Consult placed by Dr. Clancy for medical management. Patient seen and evaluated in the recreation room. Patient denies fever, chills, chest pain, palpitation, productive cough, skin rash, recent contact, known exposure to COVID-19. Patient resting comfortably. No reported nursing events. Patient appears to be at baseline level of cognition and function. Past History Past Medical History: GERD, hypertension, hyperlipidemia, seizures Past Surgical History: No surgical history, Other (Reviewed) Social history: . denies: smoking, alcohol abuse, prescription drug abuse Family history: diabetes, hypertension Medications and Allergies Allergies Allergy/AdvReac Type Severity Reaction Status Date / Time haloperidol Allergy Seizure Verified 06/03/22 10:13 Home Medications Medication Instructions Recorded Confirmed Last Taken Type Atorvastatin [Lipitor Tab] 40 mg PO 06/04/22 Unknown History Cyclobenzaprine [Flexeril] 10 mg PO TID PRN 06/04/22 06/04/22 Unknown History Memantine HCl 5 mg PO 06/04/22 Unknown History Multivit-Min/FA/Lycopen/Lutein 06/04/22 Unknown History [Certavite Senior Tablet] Naproxen [Naprosyn] 500 mg PO BID 06/04/22 06/04/22 Unknown History Omeprazole 20 mg PO 06/04/22 Unknown History amantadine HCL [Amantadine] 100 mg PO 06/04/22 Unknown History donepeziL [Aricept] 10 mg PO 06/04/22 Unknown History levETIRAcetam [Keppra TAB] 500 mg PO 06/04/22 Unknown History traZODone [Desyrel] 100 mg PO 06/04/22 Unknown History Active Meds: Active Medications Donepezil HCl (Donepezil 10 Mg Tab) 10 mg PO QHS NAM Olanzapine (Olanzapine 2.5 Mg Tab) 2.5 mg PO QDAY NAM Last Admin: 06/04/22 13:00 Dose: 2.5 mg Trazodone HCl (Trazodone 100 Mg Tab) 100 mg PO QHS NAM Review of Systems Constitutional: no weight loss, no fever, no chills Ears, nose, mouth and throat: no ear pain, no ear discharge, no nose pain, no nasal congestion, no sinus pressure Cardiovascular: no chest pain, no palpitations, no rapid/irregular heart beat, no edema Respiratory: no cough, no hemoptysis, no shortness of breath Gastrointestinal: no abdominal pain, no nausea, no diarrhea, no change in bowel habits, no hematemesis Genitourinary Male: no dysuria, no hematuria, no urinary hesitancy, no incontinence Rectal: no pain, no incontinence, no bleeding Musculoskeletal: no neck stiffness, no shooting arm pain, no arm numbnes s/tingling Integumentary: no rash, no pruritis, no redness, no sores, no wounds, no jaundice Neurological: no head injury, no paralysis, no parathesias, no numbness, no tingling Psychiatric: depression, irritability, mood swings Endocrine: no cold intolerance, no heat intolerance, no polyuria Hematologic/Lymphatic: no easy bruising, no easy bleeding Allergic/Immunologic: no urticaria, no allergic rhinitis, no wheezing Exam - Constitutional Vitals: Temp Pulse Resp BP Pulse Ox 98.6 F 95 H 17 117/57 06/04/22 00:00 06/04/22 00:00 06/04/22 00:00 06/04/22 00:00 General appearance: Present: cachectic - EENT Eyes: Present: PERRL ENT: hearing intact, clear oral mucosa - Neck Neck: Present: supple, normal ROM - Respiratory Respiratory effort: normal Respiratory: bilateral: CTA - Cardiovascular Heart Sounds: Present: S1 & S2. Absent: rub, click - Extremities Extremities: pulses symmetrical, No edema Peripheral Pulses: within normal limits - Abdominal General gastrointestinal: Present: soft, non-tender, non-distended, normal bowel sounds Male genitourinary: Present: normal - Integumentary Integumentary: Present: clear, warm, dry - Musculoskeletal Musculoskeletal: gait normal, strength equal bilaterally - Psychiatric Psychiatric: appropriate mood/affect, intact judgment & insight - Neurologic Neurologic: CNII-XII intact, moves all extremities Results - Labs CBC & Chem 7: 06/03/22 10:25 06/03/22 10:25 Labs: Abnormal lab results 06/03/22 06/03/22 Range/Units 10:25 10:25 WBC 4.4 L (4.5-11.0) K/mm3 Hgb 11.6 L (11.8-15.2) gm/dl Hct 34.7 L (35.5-45.6) % [place] % (Auto) 11.8 H (0.0-7.3) % Lymph # (Auto) 1.0 L (1.2-5.4) K/mm3 Sodium 135 L (137-145) mmol/L Chloride 96.9 L (98-107) mmol/L Albumin 3.8 L (3.9-5) g/dL LDL Cholesterol Direct 49 L (50-130) mg/dL Assessment and Plan - Patient Problems (1) Vascular dementia with behavior disturbance Current Visit: Yes Status: Acute Plan to address problem: Verbal prompting, verbal redirection, benzodiazepine therapy as clinically indicated. (2) Cerebral atherosclerosis Current Visit: Yes Status: Acute Plan to address problem: Risk factor reduction, antiplatelet therapy as clinically indicated. (3) Malnutrition Current Visit: Yes Status: Acute Qualifiers: Protein-calorie malnutrition severity: moderate Plan to address problem: Increase protein intake, dietary supplementation. (4) Hypertension Current Visit: Yes Status: Acute Qualifiers: Hypertension type: primary hypertension Qualified Code(s): I10 - Essential (primary) hypertension Plan to address problem: Monitor blood pressure every shift, continue medical management. (5) Hyperlipidemia Current Visit: Yes Status: Acute Plan to address problem: Low-cholesterol diet, statin therapy, supportive care. (6) GERD (gastroesophageal reflux disease) Current Visit: Yes Status: Acute Qualifiers: Esophagitis presence: without esophagitis Qualified Code(s): K21.9 - Gastro-esophageal reflux disease without esophagitis Plan to address problem: PPI therapy, supportive care (7) Seizure disorder Current Visit: Yes Status: Acute Plan to address problem: Continue Keppra therapy, no seizure activity at this time. (8) Advance care planning Current Visit: Yes Status: Acute Plan to address problem: Disease education data, care plan discussed, diagnoses discussed, prognosis discussed, patient is full code. Patient acknowledges understanding and agreement with care plan, +30 minutes. (9) Preventative health care Current Visit: Yes Status: Acute Plan to address problem: Patient counseled regarding risk factor reduction, increase protein intake, outpatient follow-up with primary care physician for all age and risk factor appropriate screening test. +30 minutes.
[2022-06-04] MEDS: traZODone 100 MG TAB PO SCH (21:18)
[2022-06-04] MEDS: DONEPEZIL 10 MG TAB PO SCH (21:18)
[2022-06-04] MEDS: NAPROXEN 500 MG TAB PO SCH (21:18)
[2022-06-04] MEDS: levETIRAcetam 500 MG TAB PO SCH (21:18)
--- NOTE | 2022-06-05 09:26 | Progress Note ---
Subjective Date of service: 06/05/22 Subjective Comment: 06/05:The patient was seen this morning. He states he feels better. The patient reports sleep and appetite as good. He denies any current suicidal/homicidal ideation but continues to endorse non command auditory hallucinations. REVIEW OF SYSTEMS Constitutional: Negative for weight loss ENT: Negative for stridor Respiratory: Negative for cough or hemoptysis All other systems reviewed and are negative MENTAL STATUS EXAMINATION General Appearance and Behavior: Age appropriate, wearing appropriate clothes, cooperative, polite with questioning, good eye contact Cooperation: cooperative Psychomotor Behavior: Psychomotor normal Mood: "ok" Affect and affective range: congruent with stated affect Thought Process: circumstantial Thought Content: hallucinations/ paranoid Speech: Normal volume, Regular rate and rhythm Suicidal Ideation: Denies Homicidal Ideation: Denies Hallucination: Auditory Delusions: None Impulse Control: Limited Insight and Judgment: Limited Memory: Intact Attention: attentive Orientation: Alert and oriented Diagnosis: Schizophrenia Disorder Treatment Plan Patient admitted for inpatient psychiatric evaluation, medication adjustment and close monitoring The patient's behavior, mood, sleep and appetite will be closely monitored. Patient enrolled in individual and group therapeutic sessions and encouraged to attend. Patient provided with a safe and structured environment. Patient's physical health needs will be addressed by the Hospitalist. Hospitalist Consulted Labs including CBC, CMP, Lipid profile and Hemoglobin A1C levels ordered for baseline reference Social Assessment will be completed and the Wedding Day Coordinator will work with patient and family to ensure a suitable and safe disposition Medication adjustment will be made as clinically indicated Continue home meds Increase Zyprexa to 5mg po daily Usual Wellness Sabianist/Preservation: - Start Trazodone 50 mg po QHS & 50 mg po QHS PRN between 10 PM & 2 AM for insomnia - Start Melatonin 5 mg po QHS to promote circadian rhythm The patient agreed on the treatment plan, understood the risk, benefit, alternative treatment, potential consequence of no treatment, and gave informed consent. Estimated days: 7 Post hospital care: primary care provider, psychiatric provider Case staffed with Dr. Marquez Legal Status: Voluntary Reaction to Hospitalization: Accepting Medications and Allergies Allergies Allergy/AdvReac Type Severity Reaction Status Date / Time haloperidol Allergy Seizure Verified 06/03/22 10:13 Home Medications Medication Instructions Recorded Confirmed Last Taken Type Atorvastatin [Lipitor Tab] 40 mg PO 06/04/22 Unknown History Cyclobenzaprine [Flexeril] 10 mg PO TID PRN 06/04/22 06/04/22 Unknown History Memantine HCl 5 mg PO 06/04/22 Unknown History Multivit-Min/FA/Lycopen/Lutein 06/04/22 Unknown History [Certavite Senior Tablet] Naproxen [Naprosyn] 500 mg PO BID 06/04/22 06/04/22 Unknown History Omeprazole 20 mg PO 06/04/22 Unknown History amantadine HCL [Amantadine] 100 mg PO 06/04/22 Unknown History donepeziL [Aricept] 10 mg PO 06/04/22 Unknown History levETIRAcetam [Keppra TAB] 500 mg PO 06/04/22 Unknown History traZODone [Desyrel] 100 mg PO 06/04/22 Unknown History Active Meds: Active Medications Atorvastatin Calcium (Atorvastatin 40 Mg Tab) 40 mg PO QHS [facility] Last Admin: 06/04/22 21:18 Dose: 40 mg Donepezil HCl (Donepezil 10 Mg Tab) 10 mg PO QHS [facility] Last Admin: 06/04/22 21:18 Dose: 10 mg Levetiracetam (Levetiracetam 500 Mg Tab) 500 mg PO BID [facility] Last Admin: 06/04/22 21:18 Dose: 500 mg Memantine (Memantine 5 Mg Tab) 5 mg PO QDAY [facility] Naproxen (Naproxen 500 Mg Tab) 500 mg PO BID [facility] Last Admin: 06/04/22 21:18 Dose: 500 mg Olanzapine (Olanzapine 2.5 Mg Tab) 2.5 mg PO QDAY [facility] Last Admin: 06/04/22 13:00 Dose: 2.5 mg Pantoprazole Sodium (Pantoprazole 20 Mg Tab) 20 mg PO QDAY [facility] Trazodone HCl (Trazodone 100 Mg Tab) 100 mg PO QHS [facility] Last Admin: 06/04/22 21:18 Dose: 100 mg Results - Results Labs/Vitals: Laboratory Last Values WBC 4.4 K/mm3 (4.5-11.0) L 06/03/22 10:25 RBC 3.94 M/mm3 (3.65-5.03) 06/03/22 10:25 Hgb 11.6 gm/dl (11.8-15.2) L 06/03/22 10:25 Hct 34.7 % (35.5-45.6) L 06/03/22 10:25 MCV 88 fl (84-94) 06/03/22 10:25 MCH 30 pg (28-32) 06/03/22 10:25 MCHC 34 % (32-34) 06/03/22 10:25 RDW 13.3 % (13.2-15.2) 06/03/22 10:25 Plt Count 431 K/mm3 (140-440) 06/03/22 10:25 Lymph % (Auto) 22.5 % (13.4-35.0) 06/03/22 10:25 Stark % (Auto) 11.8 % (0.0-7.3) H 06/03/22 10:25 Eos % (Auto) 0.5 % (0.0-4.3) 06/03/22 10:25 Baso % (Auto) 0.4 % (0.0-1.8) 06/03/22 10:25 Lymph # (Auto) 1.0 K/mm3 (1.2-5.4) L 06/03/22 10:25 Stark # (Auto) 0.5 K/mm3 (0.0-0.8) 06/03/22 10:25 Eos # (Auto) 0.0 K/mm3 (0.0-0.4) 06/03/22 10:25 Baso # (Auto) 0.0 K/mm3 (0.0-0.1) 06/03/22 10:25 Seg Neutrophils % 64.8 % (40.0-70.0) 06/03/22 10:25 Seg Neutrophils # 2.9 K/mm3 (1.8-7.7) 06/03/22 10:25 Sodium 135 mmol/L (137-145) L 06/03/22 10:25 Potassium 4.9 mmol/L (3.6-5.0) 06/03/22 10:25 Chloride 96.9 mmol/L (98-107) L 06/03/22 10:25 Carbon Dioxide 25 mmol/L (22-30) 06/03/22 10:25 Anion Gap 18 mmol/L 06/03/22 10:25 BUN 15 mg/dL (9-20) 06/03/22 10:25 Creatinine 0.9 mg/dL (0.8-1.3) 06/03/22 10:25 Estimated GFR > 60 ml/min 06/03/22 10:25 BUN/Creatinine Ratio 17 % 06/03/22 10:25 Glucose 92 mg/dL (75-100) 06/03/22 10:25 Hemoglobin A1c 5.9 % (4-6) 06/03/22 10:25 Calcium 9.5 mg/dL (8.4-10.2) 06/03/22 10:25 Total Bilirubin 0.40 mg/dL (0.1-1.2) 06/03/22 10:25 AST 39 units/L (5-40) 06/03/22 10:25 ALT 36 units/L (7-56) 06/03/22 10:25 Alkaline Phosphatase 94 units/L (35-129) 06/03/22 10:25 Total Protein 6.7 g/dL (6.3-8.2) 06/03/22 10:25 Albumin 3.8 g/dL (3.9-5) L 06/03/22 10:25 Albumin/Globulin Ratio 1.3 % 06/03/22 10:25 Triglycerides 100 mg/dL (2-149) 06/03/22 10:25 Cholesterol 111 mg/dL (50-199) 06/03/22 10:25 LDL Cholesterol Direct 49 mg/dL (50-130) L 06/03/22 10:25 HDL Cholesterol 50 mg/dL (40-59) 06/03/22 10:25 Cholesterol/HDL Ratio 2.22 % 06/03/22 10:25 TSH 1.790 mlU/mL (0.270-4.200) 06/03/22 10:25 Last Vital Signs Temp 98.6 F 06/05/22 07:43 Pulse 93 H 06/05/22 07:43 Resp 16 06/05/22 07:43 BP 95/72 06/05/22 07:43 Pulse Ox 100 06/05/22 07:43
[2022-06-05] MEDS: NAPROXEN 500 MG TAB PO SCH ×2 (09:38→21:23)
[2022-06-05] MEDS: levETIRAcetam 500 MG TAB PO SCH ×2 (09:38→21:24)
[2022-06-05] MEDS: PANTOPRAZOLE 20 MG TAB PO SCH (09:38)
[2022-06-05] MEDS: MEMANTINE 5 MG TAB PO SCH (09:38)
[2022-06-05] MEDS ORDERED: NON-FORMULARY EACH (Omeprazole [Omeprazole] 20 MG Capsule.Dr) PO SCH (10:00)
[2022-06-05] MEDS: DONEPEZIL 10 MG TAB PO SCH (21:24)
[2022-06-05] MEDS: traZODone 100 MG TAB PO SCH (21:24)
--- NOTE | 2022-06-06 09:06 | Progress Note ---
Subjective Date of service: 06/06/22 Subjective Comment: 06/06:The patient was seen at breakfast. he states he is doing well. He continues to endorse non-command auditory hallucinations. He denies any current suicidal/homicidal ideation and denies visual hallucinations. 06/05:The patient was seen this morning. He states he feels better. The patient reports sleep and appetite as good. He denies any current suicidal/homicidal ideation but continues to endorse non command auditory hallucinations. REVIEW OF SYSTEMS Constitutional: Negative for weight loss ENT: Negative for stridor Respiratory: Negative for cough or hemoptysis All other systems reviewed and are negative MENTAL STATUS EXAMINATION General Appearance and Behavior: Age appropriate, wearing appropriate clothes, cooperative, polite with questioning, good eye contact Cooperation: cooperative Psychomotor Behavior: Psychomotor normal Mood: "ok" Affect and affective range: congruent with stated affect Thought Process: circumstantial Thought Content: hallucinations/ paranoid Speech: Normal volume, Regular rate and rhythm Suicidal Ideation: Denies Homicidal Ideation: Denies Hallucination: Auditory Delusions: None Impulse Control: Limited Insight and Judgment: Limited Memory: Intact Attention: attentive Orientation: Alert and oriented Diagnosis: Schizophrenia Disorder Treatment Plan Patient admitted for inpatient psychiatric evaluation, medication adjustment and close monitoring The patient's behavior, mood, sleep and appetite will be closely monitored. Patient enrolled in individual and group therapeutic sessions and encouraged to attend. Patient provided with a safe and structured environment. Patient's physical health needs will be addressed by the Hospitalist. Hospitalist Consulted Labs including CBC, CMP, Lipid profile and Hemoglobin A1C levels ordered for baseline reference Social Assessment will be completed and the Optimization Manager will work with patient and family to ensure a suitable and safe disposition Medication adjustment will be made as clinically indicated Continue home meds Continue Zyprexa to 5mg po daily Usual Wellness Yarsanism/Preservation: - Start Trazodone 50 mg po QHS & 50 mg po QHS PRN between 10 PM & 2 AM for insomnia - Start Melatonin 5 mg po QHS to promote circadian rhythm The patient agreed on the treatment plan, understood the risk, benefit, alternative treatment, potential consequence of no treatment, and gave informed consent. Estimated days: 7 Post hospital care: primary care provider, psychiatric provider Case staffed with Dr. Marquez Legal Status: Voluntary Reaction to Hospitalization: Accepting Medications and Allergies Allergies Allergy/AdvReac Type Severity Reaction Status Date / Time haloperidol Allergy Seizure Verified 06/03/22 10:13 Home Medications Medication Instructions Recorded Confirmed Last Taken Type Atorvastatin [Lipitor Tab] 40 mg PO 06/04/22 Unknown History Cyclobenzaprine [Flexeril] 10 mg PO TID PRN 06/04/22 06/04/22 Unknown History Memantine HCl 5 mg PO 06/04/22 Unknown History Multivit-Min/FA/Lycopen/Lutein 06/04/22 Unknown History [Certavite Senior Tablet] Naproxen [Naprosyn] 500 mg PO BID 06/04/22 06/04/22 Unknown History Omeprazole 20 mg PO 06/04/22 Unknown History amantadine HCL [Amantadine] 100 mg PO 06/04/22 Unknown History donepeziL [Aricept] 10 mg PO 06/04/22 Unknown History levETIRAcetam [Keppra TAB] 500 mg PO 06/04/22 Unknown History traZODone [Desyrel] 100 mg PO 06/04/22 Unknown History Active Meds: Active Medications Atorvastatin Calcium (Atorvastatin 40 Mg Tab) 40 mg PO QHS [facility] Last Admin: 06/05/22 21:24 Dose: 40 mg Donepezil HCl (Donepezil 10 Mg Tab) 10 mg PO QHS [facility] Last Admin: 06/05/22 21:24 Dose: 10 mg Levetiracetam (Levetiracetam 500 Mg Tab) 500 mg PO BID [facility] Last Admin: 06/05/22 21:24 Dose: 500 mg Memantine (Memantine 5 Mg Tab) 5 mg PO QDAY [facility] Last Admin: 06/05/22 09:38 Dose: 5 mg Naproxen (Naproxen 500 Mg Tab) 500 mg PO BID [facility] Last Admin: 06/05/22 21:23 Dose: 500 mg Olanzapine (Olanzapine 5 Mg Tab) 5 mg PO QDAY [facility] Last Admin: 06/05/22 09:38 Dose: 5 mg Pantoprazole Sodium (Pantoprazole 20 Mg Tab) 20 mg PO QDAY [facility] Last Admin: 06/05/22 09:38 Dose: 20 mg Trazodone HCl (Trazodone 100 Mg Tab) 100 mg PO QHS [facility] Last Admin: 06/05/22 21:24 Dose: 100 mg Results - Results Labs/Vitals: Laboratory Last Values WBC 4.4 K/mm3 (4.5-11.0) L 06/03/22 10:25 RBC 3.94 M/mm3 (3.65-5.03) 06/03/22 10:25 Hgb 11.6 gm/dl (11.8-15.2) L 06/03/22 10:25 Hct 34.7 % (35.5-45.6) L 06/03/22 10:25 MCV 88 fl (84-94) 06/03/22 10:25 MCH 30 pg (28-32) 06/03/22 10:25 MCHC 34 % (32-34) 06/03/22 10:25 RDW 13.3 % (13.2-15.2) 06/03/22 10:25 Plt Count 431 K/mm3 (140-440) 06/03/22 10:25 Lymph % (Auto) 22.5 % (13.4-35.0) 06/03/22 10:25 [place] % (Auto) 11.8 % (0.0-7.3) H 06/03/22 10:25 Eos % (Auto) 0.5 % (0.0-4.3) 06/03/22 10:25 Baso % (Auto) 0.4 % (0.0-1.8) 06/03/22 10:25 Lymph # (Auto) 1.0 K/mm3 (1.2-5.4) L 06/03/22 10:25 [place] # (Auto) 0.5 K/mm3 (0.0-0.8) 06/03/22 10:25 Eos # (Auto) 0.0 K/mm3 (0.0-0.4) 06/03/22 10:25 Baso # (Auto) 0.0 K/mm3 (0.0-0.1) 06/03/22 10:25 Seg Neutrophils % 64.8 % (40.0-70.0) 06/03/22 10:25 Seg Neutrophils # 2.9 K/mm3 (1.8-7.7) 06/03/22 10:25 Sodium 135 mmol/L (137-145) L 06/03/22 10:25 Potassium 4.9 mmol/L (3.6-5.0) 06/03/22 10:25 Chloride 96.9 mmol/L (98-107) L 06/03/22 10:25 Carbon Dioxide 25 mmol/L (22-30) 06/03/22 10:25 Anion Gap 18 mmol/L 06/03/22 10:25 BUN 15 mg/dL (9-20) 06/03/22 10:25 Creatinine 0.9 mg/dL (0.8-1.3) 06/03/22 10:25 Estimated GFR > 60 ml/min 06/03/22 10:25 BUN/Creatinine Ratio 17 % 06/03/22 10:25 Glucose 92 mg/dL (75-100) 06/03/22 10:25 Hemoglobin A1c 5.9 % (4-6) 06/03/22 10:25 Calcium 9.5 mg/dL (8.4-10.2) 06/03/22 10:25 Total Bilirubin 0.40 mg/dL (0.1-1.2) 06/03/22 10:25 AST 39 units/L (5-40) 06/03/22 10:25 ALT 36 units/L (7-56) 06/03/22 10:25 Alkaline Phosphatase 94 units/L (35-129) 06/03/22 10:25 Total Protein 6.7 g/dL (6.3-8.2) 06/03/22 10:25 Albumin 3.8 g/dL (3.9-5) L 06/03/22 10:25 Albumin/Globulin Ratio 1.3 % 06/03/22 10:25 Triglycerides 100 mg/dL (2-149) 06/03/22 10:25 Cholesterol 111 mg/dL (50-199) 06/03/22 10:25 LDL Cholesterol Direct 49 mg/dL (50-130) L 06/03/22 10:25 HDL Cholesterol 50 mg/dL (40-59) 06/03/22 10:25 Cholesterol/HDL Ratio 2.22 % 06/03/22 10:25 TSH 1.790 mlU/mL (0.270-4.200) 06/03/22 10:25 Last Vital Signs Temp 98.6 F 06/05/22 07:43 Pulse 93 H 06/05/22 07:43 Resp 16 06/05/22 09:38 BP 95/72 06/05/22 07:43 Pulse Ox 100 06/05/22 07:43
[2022-06-06] MEDS: NAPROXEN 500 MG TAB PO SCH ×2 (09:22→21:17)
[2022-06-06] MEDS: MEMANTINE 5 MG TAB PO SCH (09:22)
[2022-06-06] MEDS: PANTOPRAZOLE 20 MG TAB PO SCH (09:22)
[2022-06-06] MEDS: levETIRAcetam 500 MG TAB PO SCH ×2 (09:22→21:19)
--- NOTE | 2022-06-06 16:00 | Progress Note ---
Assessment and Plan - Patient Problems (1) Vascular dementia with behavior disturbance Current Visit: Yes Status: Acute Plan to address problem: Verbal prompting, verbal redirection, benzodiazepine therapy as clinically indicated. (2) Cerebral atherosclerosis Current Visit: Yes Status: Acute Plan to address problem: Risk factor reduction, antiplatelet therapy as clinically indicated. (3) Malnutrition Current Visit: Yes Status: Acute Qualifiers: Protein-calorie malnutrition severity: moderate Plan to address problem: Increase protein intake, dietary supplementation. (4) Hypertension Current Visit: Yes Status: Acute Qualifiers: Hypertension type: primary hypertension Qualified Code(s): I10 - Essential (primary) hypertension Plan to address problem: Monitor blood pressure every shift, continue medical management. (5) Hyperlipidemia Current Visit: Yes Status: Acute Plan to address problem: Low-cholesterol diet, statin therapy, supportive care. (6) GERD (gastroesophageal reflux disease) Current Visit: Yes Status: Acute Qualifiers: Esophagitis presence: without esophagitis Qualified Code(s): K21.9 - Gastro-esophageal reflux disease without esophagitis Plan to address problem: PPI therapy, supportive care (7) Seizure disorder Current Visit: Yes Status: Acute Plan to address problem: Continue Keppra therapy, no seizure activity at this time. (8) Advance care planning Current Visit: Yes Status: Acute Plan to address problem: Disease education data, care plan discussed, diagnoses discussed, prognosis discussed, patient is full code. Patient acknowledges understanding and agreement with care plan, +30 minutes. (9) Preventative health care Current Visit: Yes Status: Acute Plan to address problem: Patient counseled regarding risk factor reduction, increase protein intake, outpatient follow-up with primary care physician for all age and risk factor appropriate screening test. +30 minutes. History Interval history: 62 YO Male with Vascular Dementia with Behavioral Disturbance, Cerebral Atherosclerosis, HTN, HLD, GERD, Seizure Disorder, MDD admitted to [facility] unit for psychiatric stabilization. Consult placed by Dr. Anderson for medical management. Patient seen and evaluated in the recreation room. Patient resting comfortably. No reported nursing events. Patient appears to be at baseline level of cognition and function. Hospitalist Physical - Constitutional Vitals: Temp Pulse Resp BP Pulse Ox 98.6 F 93 H 16 95/72 100 06/05/22 07:43 06/05/22 07:43 06/05/22 09:38 06/05/22 07:43 06/05/22 07:43 General appearance: Present: no acute distress, cachectic - EENT Eyes: Present: PERRL ENT: hearing decreased - Neck Neck: Present: supple - Respiratory Respiratory effort: normal Respiratory: bilateral: CTA - Cardiovascular Rhythm: regular Heart Sounds: Present: S1 & S2 - Extremities Extremities: no ischemia Peripheral Pulses: within normal limits - Abdominal General gastrointestinal: soft, non-tender, non-distended - Integumentary Integumentary: Present: clear, dry - Psychiatric Psychiatric: cooperative - Neurologic Neurologic: CNII-XII intact Results - Labs CBC & Chem 7: 06/03/22 10:25 06/03/22 10:25 Labs: Laboratory Last Values WBC 4.4 K/mm3 (4.5-11.0) L 06/03/22 10:25 RBC 3.94 M/mm3 (3.65-5.03) 06/03/22 10:25 Hgb 11.6 gm/dl (11.8-15.2) L 06/03/22 10:25 Hct 34.7 % (35.5-45.6) L 06/03/22 10:25 MCV 88 fl (84-94) 06/03/22 10:25 MCH 30 pg (28-32) 06/03/22 10:25 MCHC 34 % (32-34) 06/03/22 10:25 RDW 13.3 % (13.2-15.2) 06/03/22 10:25 Plt Count 431 K/mm3 (140-440) 06/03/22 10:25 Lymph % (Auto) 22.5 % (13.4-35.0) 06/03/22 10:25 [place] % (Auto) 11.8 % (0.0-7.3) H 06/03/22 10:25 Eos % (Auto) 0.5 % (0.0-4.3) 06/03/22 10:25 Baso % (Auto) 0.4 % (0.0-1.8) 06/03/22 10:25 Lymph # (Auto) 1.0 K/mm3 (1.2-5.4) L 06/03/22 10:25 [place] # (Auto) 0.5 K/mm3 (0.0-0.8) 06/03/22 10:25 Eos # (Auto) 0.0 K/mm3 (0.0-0.4) 06/03/22 10:25 Baso # (Auto) 0.0 K/mm3 (0.0-0.1) 06/03/22 10:25 Seg Neutrophils % 64.8 % (40.0-70.0) 06/03/22 10:25 Seg Neutrophils # 2.9 K/mm3 (1.8-7.7) 06/03/22 10:25 Sodium 135 mmol/L (137-145) L 06/03/22 10:25 Potassium 4.9 mmol/L (3.6-5.0) 06/03/22 10:25 Chloride 96.9 mmol/L (98-107) L 06/03/22 10:25 Carbon Dioxide 25 mmol/L (22-30) 06/03/22 10:25 Anion Gap 18 mmol/L 06/03/22 10:25 BUN 15 mg/dL (9-20) 06/03/22 10:25 Creatinine 0.9 mg/dL (0.8-1.3) 06/03/22 10:25 Estimated GFR > 60 ml/min 06/03/22 10:25 BUN/Creatinine Ratio 17 % 06/03/22 10:25 Glucose 92 mg/dL (75-100) 06/03/22 10:25 Hemoglobin A1c 5.9 % (4-6) 06/03/22 10:25 Calcium 9.5 mg/dL (8.4-10.2) 06/03/22 10:25 Total Bilirubin 0.40 mg/dL (0.1-1.2) 06/03/22 10:25 AST 39 units/L (5-40) 06/03/22 10:25 ALT 36 units/L (7-56) 06/03/22 10:25 Alkaline Phosphatase 94 units/L (35-129) 06/03/22 10:25 Total Protein 6.7 g/dL (6.3-8.2) 06/03/22 10:25 Albumin 3.8 g/dL (3.9-5) L 06/03/22 10:25 Albumin/Globulin Ratio 1.3 % 06/03/22 10:25 Triglycerides 100 mg/dL (2-149) 06/03/22 10:25 Cholesterol 111 mg/dL (50-199) 06/03/22 10:25 LDL Cholesterol Direct 49 mg/dL (50-130) L 06/03/22 10:25 HDL Cholesterol 50 mg/dL (40-59) 06/03/22 10:25 Cholesterol/HDL Ratio 2.22 % 06/03/22 10:25 TSH 1.790 mlU/mL (0.270-4.200) 06/03/22 10:25 Perry/IV: Voiding Method Toilet Active Medications - Current Medications Current Medications: Generic Name Dose Route Start Last Admin Trade Name Freq PRN Reason Stop Dose Admin Atorvastatin Calcium 40 mg 06/04/22 22:00 06/05/22 21:24 Atorvastatin 40 Mg Tab PO 40 mg QHS NAM Administration Donepezil HCl 10 mg 06/04/22 22:00 06/05/22 21:24 Donepezil 10 Mg Tab PO 10 mg QHS NAM Administration Levetiracetam 500 mg 06/04/22 22:00 06/06/22 09:22 Levetiracetam 500 Mg Tab PO 500 mg BID NAM Administration Memantine 5 mg 06/05/22 10:00 06/06/22 09:22 Memantine 5 Mg Tab PO 5 mg QDAY NAM Administration Naproxen 500 mg 06/04/22 22:00 06/06/22 09:22 Naproxen 500 Mg Tab PO 500 mg BID NAM Administration Olanzapine 5 mg 06/05/22 10:00 06/06/22 09:22 Olanzapine 5 Mg Tab PO 5 mg QDAY NAM Administration Pantoprazole Sodium 20 mg 06/05/22 10:00 06/06/22 09:22 Pantoprazole 20 Mg Tab PO 20 mg QDAY NAM Administration Trazodone HCl 100 mg 06/04/22 22:00 06/05/22 21:24 Trazodone 100 Mg Tab PO 100 mg QHS NAM Administration Nutrition/Malnutrition Assess - Dietary Evaluation Nutrition/Malnutrition Findings: Nutrition Notes Start: 06/04/22 12:51 Freq: Status: Active Protocol: Document 06/04/22 12:51 ABHINAV (Rec: 06/04/22 12:58 [email or web address] [id number]) Nutrition Notes Need for Assessment generated from: Low BMI Initial or Follow up Assessment Current Diagnosis Hyperlipidemia Other Pertinent Diagnosis Schizophrenia, Suicidal ideation Current Diet Regular Labs/Tests Reviewed Pertinent Medications Reviewed Height 5 ft 7 in Weight 42.1 kg [place] Body Weight (kg) 67.27 BMI 14.5 Weight Status Underweight Subjective/Other Information Pt screened for low BMI. He has consumed 88% of 2 meals so far. Per MD H&P, pt with no recent wt changes. Burn Absent Trauma Absent Current % PO Good (75-100%) Minimum of two criteria No #1 Nutrition Diagnosis Underweight Etiology hx of schizophrenia, advanced age As Evidenced by Signs and Symptoms BMI 14.5 Is patient on ventilator? No Is Patient Ambulatory and/or Out of Bed Yes REE-([facility]-ambulatory/OOB) [ 1527.019 [id number]] Kcal/Kg value to use for calculation 45 Approximate Energy Requirements Using 1895 kcal/Kg Calculation Used for Recommendations Kcal/kg Additional Notes Pro needs 1.2-1.5g/k-63g/ day Fluid needs 1ml/kcal Nutrition Intervention Change Diet Order: Continue current diet order Add Supplement/Snack (indicate name/kcal Ensure High Protein BID /protein ) Provides kCal: 320 Provides Protein (gm) 32 Goal #1 PO intake of meals plus ONS to meet 100% energy and pro needs Goal #2 Wt maintenance and/or gain Anticipated Discharge Needs: High-calorie/high-protein diet ; 1-2 ONS daily for wt maintenance Follow-Up By: 06/11/22 Additional Comments F/U: stable intakes, wt
[2022-06-06] MEDS: traZODone 100 MG TAB PO SCH (21:19)
[2022-06-06] MEDS: DONEPEZIL 10 MG TAB PO SCH (21:21)
--- NOTE | 2022-06-07 08:45 | Progress Note ---
Subjective Date of service: 06/07/22 Subjective Comment: 06/07: The patient was seen this morning. He states he feels better but continues to be depressed " in [facility]." He denies any current suicidal/homicidal ideation but continues to endorse non command auditory hallucinations. 06/06:The patient was seen at breakfast. He states he is doing well. He continues to endorse non-command auditory hallucinations. He denies any current suicidal/homicidal ideation and denies visual hallucinations. 06/05:The patient was seen this morning. He states he feels better. The patient reports sleep and appetite as good. He denies any current suicidal/homicidal ideation but continues to endorse non command auditory hallucinations. REVIEW OF SYSTEMS Constitutional: Negative for weight loss ENT: Negative for stridor Respiratory: Negative for cough or hemoptysis All other systems reviewed and are negative MENTAL STATUS EXAMINATION General Appearance and Behavior: Age appropriate, wearing appropriate clothes, cooperative, polite with questioning, good eye contact Cooperation: cooperative Psychomotor Behavior: Psychomotor normal Mood: depressed Affect and affective range: congruent with stated affect Thought Process: goal directed Thought Content: hallucinations Speech: Normal volume, Regular rate and rhythm Suicidal Ideation: Denies Homicidal Ideation: Denies Hallucination: Auditory Delusions: None Impulse Control: Limited Insight and Judgment: Limited Memory: Intact Attention: attentive Orientation: Alert and oriented Diagnosis: Schizophrenia Disorder Treatment Plan Patient admitted for inpatient psychiatric evaluation, medication adjustment and close monitoring The patient's behavior, mood, sleep and appetite will be closely monitored. Patient enrolled in individual and group therapeutic sessions and encouraged to attend. Patient provided with a safe and structured environment. Patient's physical health needs will be addressed by the Hospitalist. Hospitalist Consulted Labs including CBC, CMP, Lipid profile and Hemoglobin A1C levels ordered for baseline reference Social Assessment will be completed and the Director Of Donor Relations will work with patient and family to ensure a suitable and safe disposition Medication adjustment will be made as clinically indicated Continue home meds Continue Zyprexa to 5mg po daily Usual Wellness [facility]ist/Preservation: - Start Trazodone 50 mg po QHS & 50 mg po QHS PRN between 10 PM & 2 AM for insomnia - Start Melatonin 5 mg po QHS to promote circadian rhythm The patient agreed on the treatment plan, understood the risk, benefit, alternative treatment, potential consequence of no treatment, and gave informed consent. Estimated days: 7 Post hospital care: primary care provider, psychiatric provider Case staffed with Dr. Marquez Legal Status: Voluntary Reaction to Hospitalization: Accepting Medications and Allergies Medications and Allergies Allergies Allergy/AdvReac Type Severity Reaction Status Date / Time haloperidol Allergy Seizure Verified 06/03/22 10:13 Home Medications Medication Instructions Recorded Confirmed Last Taken Type Atorvastatin [Lipitor Tab] 40 mg PO 06/04/22 Unknown History Cyclobenzaprine [Flexeril] 10 mg PO TID PRN 06/04/22 06/04/22 Unknown History Memantine HCl 5 mg PO 06/04/22 Unknown History Multivit-Min/FA/Lycopen/Lutein 06/04/22 Unknown History [Certavite Senior Tablet] Naproxen [Naprosyn] 500 mg PO BID 06/04/22 06/04/22 Unknown History Omeprazole 20 mg PO 06/04/22 Unknown History amantadine HCL [Amantadine] 100 mg PO 06/04/22 Unknown History donepeziL [Aricept] 10 mg PO 06/04/22 Unknown History levETIRAcetam [Keppra TAB] 500 mg PO 06/04/22 Unknown History traZODone [Desyrel] 100 mg PO 06/04/22 Unknown History Active Meds: Active Medications Atorvastatin Calcium (Atorvastatin 40 Mg Tab) 40 mg PO QHS [facility] Last Admin: 06/06/22 21:19 Dose: 40 mg Donepezil HCl (Donepezil 10 Mg Tab) 10 mg PO QHS [facility] Last Admin: 06/06/22 21:21 Dose: 10 mg Levetiracetam (Levetiracetam 500 Mg Tab) 500 mg PO BID [facility] Last Admin: 06/06/22 21:19 Dose: 500 mg Memantine (Memantine 5 Mg Tab) 5 mg PO QDAY [facility] Last Admin: 06/06/22 09:22 Dose: 5 mg Naproxen (Naproxen 500 Mg Tab) 500 mg PO BID [facility] Last Admin: 06/06/22 21:17 Dose: 500 mg Olanzapine (Olanzapine 5 Mg Tab) 5 mg PO QDAY [facility] Last Admin: 06/06/22 09:22 Dose: 5 mg Pantoprazole Sodium (Pantoprazole 20 Mg Tab) 20 mg PO QDAY [facility] Last Admin: 06/06/22 09:22 Dose: 20 mg Trazodone HCl (Trazodone 100 Mg Tab) 100 mg PO QHS [facility] Last Admin: 06/06/22 21:19 Dose: 100 mg Results - Results Labs/Vitals: Laboratory Last Values WBC 4.4 K/mm3 (4.5-11.0) L 06/03/22 10:25 RBC 3.94 M/mm3 (3.65-5.03) 06/03/22 10:25 Hgb 11.6 gm/dl (11.8-15.2) L 06/03/22 10:25 Hct 34.7 % (35.5-45.6) L 06/03/22 10:25 MCV 88 fl (84-94) 06/03/22 10:25 MCH 30 pg (28-32) 06/03/22 10:25 MCHC 34 % (32-34) 06/03/22 10:25 RDW 13.3 % (13.2-15.2) 06/03/22 10:25 Plt Count 431 K/mm3 (140-440) 06/03/22 10:25 Lymph % (Auto) 22.5 % (13.4-35.0) 06/03/22 10:25 [place] % (Auto) 11.8 % (0.0-7.3) H 06/03/22 10:25 Eos % (Auto) 0.5 % (0.0-4.3) 06/03/22 10:25 Baso % (Auto) 0.4 % (0.0-1.8) 06/03/22 10:25 Lymph # (Auto) 1.0 K/mm3 (1.2-5.4) L 06/03/22 10:25 [place] # (Auto) 0.5 K/mm3 (0.0-0.8) 06/03/22 10:25 Eos # (Auto) 0.0 K/mm3 (0.0-0.4) 06/03/22 10:25 Baso # (Auto) 0.0 K/mm3 (0.0-0.1) 06/03/22 10:25 Seg Neutrophils % 64.8 % (40.0-70.0) 06/03/22 10:25 Seg Neutrophils # 2.9 K/mm3 (1.8-7.7) 06/03/22 10:25 Sodium 135 mmol/L (137-145) L 06/03/22 10:25 Potassium 4.9 mmol/L (3.6-5.0) 06/03/22 10:25 Chloride 96.9 mmol/L (98-107) L 06/03/22 10:25 Carbon Dioxide 25 mmol/L (22-30) 06/03/22 10:25 Anion Gap 18 mmol/L 06/03/22 10:25 BUN 15 mg/dL (9-20) 06/03/22 10:25 Creatinine 0.9 mg/dL (0.8-1.3) 06/03/22 10:25 Estimated GFR > 60 ml/min 06/03/22 10:25 BUN/Creatinine Ratio 17 % 06/03/22 10:25 Glucose 92 mg/dL (75-100) 06/03/22 10:25 Hemoglobin A1c 5.9 % (4-6) 06/03/22 10:25 Calcium 9.5 mg/dL (8.4-10.2) 06/03/22 10:25 Total Bilirubin 0.40 mg/dL (0.1-1.2) 06/03/22 10:25 AST 39 units/L (5-40) 06/03/22 10:25 ALT 36 units/L (7-56) 06/03/22 10:25 Alkaline Phosphatase 94 units/L (35-129) 06/03/22 10:25 Total Protein 6.7 g/dL (6.3-8.2) 06/03/22 10:25 Albumin 3.8 g/dL (3.9-5) L 06/03/22 10:25 Albumin/Globulin Ratio 1.3 % 06/03/22 10:25 Triglycerides 100 mg/dL (2-149) 06/03/22 10:25 Cholesterol 111 mg/dL (50-199) 06/03/22 10:25 LDL Cholesterol Direct 49 mg/dL (50-130) L 06/03/22 10:25 HDL Cholesterol 50 mg/dL (40-59) 06/03/22 10:25 Cholesterol/HDL Ratio 2.22 % 06/03/22 10:25 TSH 1.790 mlU/mL (0.270-4.200) 06/03/22 10:25 Last Vital Signs Temp 98.9 F 06/06/22 20:08 Pulse 64 09/04/22 20:08 Resp 20 06/06/22 20:08 BP 96/65 06/06/22 20:08 Pulse Ox 100 06/06/22 20:08
[2022-06-07] MEDS: levETIRAcetam 500 MG TAB PO SCH ×2 (10:09→21:12)
[2022-06-07] MEDS: PANTOPRAZOLE 20 MG TAB PO SCH (10:10)
[2022-06-07] MEDS: MEMANTINE 5 MG TAB PO SCH (10:10)
[2022-06-07] MEDS: NAPROXEN 500 MG TAB PO SCH ×2 (10:10→21:08)
[2022-06-07] MEDS: traZODone 100 MG TAB PO SCH (21:12)
[2022-06-07] MEDS: DONEPEZIL 10 MG TAB PO SCH (21:12)
--- NOTE | 2022-06-08 10:03 | Progress Note ---
Subjective Date of service: 06/08/22 Subjective Comment: 06/08:The patient was seen in the activity room. He reeports doing better but continue to have auditory hallucinations "they keep me up if I don't my meds." He denies any current suicidal/homicidal ideation and denies visual hallucinations. 06/07: The patient was seen this morning. He states he feels better. He reports sleep and appetite is good. He denies any current suicidal/homicidal ideation but continues to endorse non command auditory hallucinations " they keep telling me it's time to get up." 06/06:The patient was seen at breakfast. He states he is doing well. He continues to endorse non-command auditory hallucinations. He denies any current suicidal/homicidal ideation and denies visual hallucinations. 06/05:The patient was seen this morning. He states he feels better. The patient reports sleep and appetite as good. He denies any current suicidal/homicidal ideation but continues to endorse non command auditory hallucinations. REVIEW OF SYSTEMS Constitutional: Negative for weight loss ENT: Negative for stridor Respiratory: Negative for cough or hemoptysis All other systems reviewed and are negative MENTAL STATUS EXAMINATION General Appearance and Behavior: Age appropriate, wearing appropriate clothes, cooperative, polite with questioning, good eye contact Cooperation: cooperative Psychomotor Behavior: Psychomotor normal Mood: Calm Affect and affective range: congruent with stated affect Thought Process: goal directed Thought Content: hallucinations Speech: Normal volume, Regular rate and rhythm Suicidal Ideation: Denies Homicidal Ideation: Denies Hallucination: Auditory Delusions: None Impulse Control: Limited Insight and Judgment: Limited Memory: Intact Attention: attentive Orientation: Alert and oriented Diagnosis: Schizophrenia Disorder Treatment Plan Patient admitted for inpatient psychiatric evaluation, medication adjustment and close monitoring The patient's behavior, mood, sleep and appetite will be closely monitored. Patient enrolled in individual and group therapeutic sessions and encouraged to attend. Patient provided with a safe and structured environment. Patient's physical health needs will be addressed by the Hospitalist. Hospitalist Consulted Labs including CBC, CMP, Lipid profile and Hemoglobin A1C levels ordered for baseline reference Social Assessment will be completed and the Improvement Intern will work with patient and family to ensure a suitable and safe disposition Medication adjustment will be made as clinically indicated Continue home meds Continue Zyprexa to 5mg po daily Usual Wellness Mormon/Preservation: - Start Trazodone 50 mg po QHS & 50 mg po QHS PRN between 10 PM & 2 AM for insomnia - Start Melatonin 5 mg po QHS to promote circadian rhythm The patient agreed on the treatment plan, understood the risk, benefit, alternative treatment, potential consequence of no treatment, and gave informed consent. Estimated days: 7 Post hospital care: primary care provider, psychiatric provider Case staffed with Dr. Marquez Legal Status: Voluntary Reaction to Hospitalization: Accepting Medications and Allergies Medications and Allergies Allergies Allergy/AdvReac Type Severity Reaction Status Date / Time haloperidol Allergy Seizure Verified 06/03/22 10:13 Home Medications Medication Instructions Recorded Confirmed Last Taken Type Atorvastatin [Lipitor Tab] 40 mg PO HS 06/04/22 06/08/22 Unknown History Cyclobenzaprine [Flexeril] 10 mg PO TID PRN 06/04/22 06/04/22 Unknown History Memantine HCl 5 mg PO QDAY 06/04/22 06/08/22 Unknown History Multivit-Min/FA/Lycopen/Lutein 1 tab PO UNK 06/04/22 06/08/22 Unknown History [Certavite Senior Tablet] Naproxen [Naprosyn] 500 mg PO BID 06/04/22 06/04/22 Unknown History Omeprazole 20 mg PO DAILY 06/04/22 06/08/22 Unknown History amantadine HCL [Amantadine] 100 mg PO UNK 06/04/22 06/08/22 Unknown History donepeziL [Aricept] 10 mg PO HS 06/04/22 06/08/22 Unknown History levETIRAcetam [Keppra TAB] 500 mg PO BID 06/04/22 06/08/22 Unknown History traZODone [Desyrel] 100 mg PO HS 06/04/22 06/08/22 Unknown History Active Meds: Active Medications Atorvastatin Calcium (Atorvastatin 40 Mg Tab) 40 mg PO QHS [facility] Last Admin: 06/07/22 21:12 Dose: 40 mg Donepezil HCl (Donepezil 10 Mg Tab) 10 mg PO QHS [facility] Last Admin: 06/07/22 21:12 Dose: 10 mg Levetiracetam (Levetiracetam 500 Mg Tab) 500 mg PO BID [facility] Last Admin: 06/07/22 21:12 Dose: 500 mg Memantine (Memantine 5 Mg Tab) 5 mg PO QDAY [facility] Last Admin: 06/07/22 10:10 Dose: 5 mg Naproxen (Naproxen 500 Mg Tab) 500 mg PO BID [facility] Last Admin: 06/07/22 21:08 Dose: 500 mg Olanzapine (Olanzapine 5 Mg Tab) 5 mg PO QDAY [facility] Last Admin: 06/07/22 10:10 Dose: 5 mg Pantoprazole Sodium (Pantoprazole 20 Mg Tab) 20 mg PO QDAY [facility] Last Admin: 06/07/22 10:10 Dose: 20 mg Trazodone HCl (Trazodone 100 Mg Tab) 100 mg PO QHS [facility] Last Admin: 06/07/22 21:12 Dose: 100 mg Results - Results Labs/Vitals: Laboratory Last Values WBC 4.4 K/mm3 (4.5-11.0) L 06/03/22 10:25 RBC 3.94 M/mm3 (3.65-5.03) 06/03/22 10:25 Hgb 11.6 gm/dl (11.8-15.2) L 06/03/22 10:25 Hct 34.7 % (35.5-45.6) L 06/03/22 10:25 MCV 88 fl (84-94) 06/03/22 10:25 MCH 30 pg (28-32) 06/03/22 10:25 MCHC 34 % (32-34) 06/03/22 10:25 RDW 13.3 % (13.2-15.2) 06/03/22 10:25 Plt Count 431 K/mm3 (140-440) 06/03/22 10:25 Lymph % (Auto) 22.5 % (13.4-35.0) 06/03/22 10:25 [place] % (Auto) 11.8 % (0.0-7.3) H 06/03/22 10:25 Eos % (Auto) 0.5 % (0.0-4.3) 06/03/22 10:25 Baso % (Auto) 0.4 % (0.0-1.8) 06/03/22 10:25 Lymph # (Auto) 1.0 K/mm3 (1.2-5.4) L 06/03/22 10:25 [place] # (Auto) 0.5 K/mm3 (0.0-0.8) 06/03/22 10:25 Eos # (Auto) 0.0 K/mm3 (0.0-0.4) 06/03/22 10:25 Baso # (Auto) 0.0 K/mm3 (0.0-0.1) 06/03/22 10:25 Seg Neutrophils % 64.8 % (40.0-70.0) 06/03/22 10:25 Seg Neutrophils # 2.9 K/mm3 (1.8-7.7) 06/03/22 10:25 Sodium 135 mmol/L (137-145) L 06/03/22 10:25 Potassium 4.9 mmol/L (3.6-5.0) 06/03/22 10:25 Chloride 96.9 mmol/L (98-107) L 06/03/22 10:25 Carbon Dioxide 25 mmol/L (22-30) 06/03/22 10:25 Anion Gap 18 mmol/L 06/03/22 10:25 BUN 15 mg/dL (9-20) 06/03/22 10:25 Creatinine 0.9 mg/dL (0.8-1.3) 06/03/22 10:25 Estimated GFR > 60 ml/min 06/03/22 10:25 BUN/Creatinine Ratio 17 % 06/03/22 10:25 Glucose 92 mg/dL (75-100) 06/03/22 10:25 Hemoglobin A1c 5.9 % (4-6) 06/03/22 10:25 Calcium 9.5 mg/dL (8.4-10.2) 06/03/22 10:25 Total Bilirubin 0.40 mg/dL (0.1-1.2) 06/03/22 10:25 AST 39 units/L (5-40) 06/03/22 10:25 ALT 36 units/L (7-56) 06/03/22 10:25 Alkaline Phosphatase 94 units/L (35-129) 06/03/22 10:25 Total Protein 6.7 g/dL (6.3-8.2) 06/03/22 10:25 Albumin 3.8 g/dL (3.9-5) L 06/03/22 10:25 Albumin/Globulin Ratio 1.3 % 06/03/22 10:25 Triglycerides 100 mg/dL (2-149) 06/03/22 10:25 Cholesterol 111 mg/dL (50-199) 06/03/22 10:25 LDL Cholesterol Direct 49 mg/dL (50-130) L 06/03/22 10:25 HDL Cholesterol 50 mg/dL (40-59) 06/03/22 10:25 Cholesterol/HDL Ratio 2.22 % 06/03/22 10:25 TSH 1.790 mlU/mL (0.270-4.200) 06/03/22 10:25 Last Vital Signs Temp 98.5 F 06/07/22 19:18 Pulse 87 06/07/22 19:18 Resp 17 06/07/22 19:18 BP 118/84 06/07/22 19:18 Pulse Ox 100 06/07/22 19:18
[2022-06-08] MEDS: PANTOPRAZOLE 20 MG TAB PO SCH (10:45)
[2022-06-08] MEDS: MEMANTINE 5 MG TAB PO SCH (10:45)
[2022-06-08] MEDS: levETIRAcetam 500 MG TAB PO SCH ×2 (10:45→21:44)
[2022-06-08] MEDS: NAPROXEN 500 MG TAB PO SCH ×2 (10:45→21:43)
[2022-06-08] MEDS: DONEPEZIL 10 MG TAB PO SCH (21:45)
[2022-06-08] MEDS: traZODone 100 MG TAB PO SCH (21:45)
--- NOTE | 2022-06-09 09:09 | Progress Note ---
Subjective Date of service: 06/09/22 Subjective Comment: 06/09:The patient was seen this morning. He states he is doing well. He reports sleep and appetite is good. He denies any current suicidal/homicidal ideation but continues to endorse non command auditory hallucinations 06/08:The patient was seen in the activity room. He reports doing better but continue to have auditory hallucinations "they keep me up if I don't my meds." He denies any current suicidal/homicidal ideation and denies visual hallucinations. 06/07: The patient was seen this morning. He states he feels better. He reports sleep and appetite is good. He denies any current suicidal/homicidal ideation but continues to endorse non command auditory hallucinations " they keep telling me it's time to get up." 06/06:The patient was seen at breakfast. He states he is doing well. He continues to endorse non-command auditory hallucinations. He denies any current suicidal/homicidal ideation and denies visual hallucinations. 06/05:The patient was seen this morning. He states he feels better. The patient reports sleep and appetite as good. He denies any current suicidal/homicidal ideation but continues to endorse non command auditory hallucinations. REVIEW OF SYSTEMS Constitutional: Negative for weight loss ENT: Negative for stridor Respiratory: Negative for cough or hemoptysis All other systems reviewed and are negative MENTAL STATUS EXAMINATION General Appearance and Behavior: Age appropriate, wearing appropriate clothes, cooperative, polite with questioning, good eye contact Cooperation: cooperative Psychomotor Behavior: Psychomotor normal Mood: Calm Affect and affective range: congruent with stated affect Thought Process: goal directed Thought Content: hallucinations Speech: Normal volume, Regular rate and rhythm Suicidal Ideation: Denies Homicidal Ideation: Denies Hallucination: Auditory Delusions: None Impulse Control: Limited Insight and Judgment: Limited Memory: Intact Attention: attentive Orientation: Alert and oriented Diagnosis: Schizophrenia Disorder Treatment Plan Patient admitted for inpatient psychiatric evaluation, medication adjustment and close monitoring The patient's behavior, mood, sleep and appetite will be closely monitored. Patient enrolled in individual and group therapeutic sessions and encouraged to attend. Patient provided with a safe and structured environment. Patient's physical health needs will be addressed by the Hospitalist. Hospitalist Consulted Labs including CBC, CMP, Lipid profile and Hemoglobin A1C levels ordered for baseline reference Social Assessment will be completed and the [place] Turner will work with patient and family to ensure a suitable and safe disposition Medication adjustment will be made as clinically indicated Continue home meds Continue Zyprexa to 5mg po daily Usual Wellness Baptism/Preservation: - Start Trazodone 50 mg po QHS & 50 mg po QHS PRN between 10 PM & 2 AM for insomnia - Start Melatonin 5 mg po QHS to promote circadian rhythm The patient agreed on the treatment plan, understood the risk, benefit, alternative treatment, potential consequence of no treatment, and gave informed consent. Estimated days: 7 Post hospital care: primary care provider, psychiatric provider Case staffed with Dr. Marquez Legal Status: Voluntary Reaction to Hospitalization: Accepting Medications and Allergies Medications and Allergies Allergies Allergy/AdvReac Type Severity Reaction Status Date / Time haloperidol Allergy Seizure Verified 06/03/22 10:13 Home Medications Medication Instructions Recorded Confirmed Last Taken Type Atorvastatin [Lipitor Tab] 40 mg PO HS 06/04/22 06/08/22 Unknown History Cyclobenzaprine [Flexeril] 10 mg PO TID PRN 06/04/22 06/04/22 Unknown History Memantine HCl 5 mg PO QDAY 06/04/22 06/08/22 Unknown History Multivit-Min/FA/Lycopen/Lutein 1 tab PO UNK 06/04/22 06/08/22 Unknown History [Certavite Senior Tablet] Naproxen [Naprosyn] 500 mg PO BID 06/04/22 06/04/22 Unknown History Omeprazole 20 mg PO DAILY 06/04/22 06/08/22 Unknown History amantadine HCL [Amantadine] 100 mg PO UNK 06/04/22 06/08/22 Unknown History donepeziL [Aricept] 10 mg PO HS 06/04/22 06/08/22 Unknown History levETIRAcetam [Keppra TAB] 500 mg PO BID 06/04/22 06/08/22 Unknown History traZODone [Desyrel] 100 mg PO HS 06/04/22 06/08/22 Unknown History Active Meds: Active Medications Atorvastatin Calcium (Atorvastatin 40 Mg Tab) 40 mg PO QHS [facility] Last Admin: 06/08/22 21:43 Dose: 40 mg Donepezil HCl (Donepezil 10 Mg Tab) 10 mg PO QHS [facility] Last Admin: 06/08/22 21:45 Dose: 10 mg Levetiracetam (Levetiracetam 500 Mg Tab) 500 mg PO BID [facility] Last Admin: 06/08/22 21:44 Dose: 500 mg Memantine (Memantine 5 Mg Tab) 5 mg PO QDAY [facility] Last Admin: 06/08/22 10:45 Dose: 5 mg Naproxen (Naproxen 500 Mg Tab) 500 mg PO BID [facility] Last Admin: 06/08/22 21:43 Dose: 500 mg Olanzapine (Olanzapine 5 Mg Tab) 5 mg PO QDAY [facility] Last Admin: 06/08/22 10:45 Dose: 5 mg Pantoprazole Sodium (Pantoprazole 20 Mg Tab) 20 mg PO QDAY [facility] Last Admin: 06/08/22 10:45 Dose: 20 mg Trazodone HCl (Trazodone 100 Mg Tab) 100 mg PO QHS [facility] Last Admin: 06/08/22 21:45 Dose: 100 mg Results - Results Labs/Vitals: Laboratory Last Values WBC 4.4 K/mm3 (4.5-11.0) L 06/03/22 10:25 RBC 3.94 M/mm3 (3.65-5.03) 06/03/22 10:25 Hgb 11.6 gm/dl (11.8-15.2) L 06/03/22 10:25 Hct 34.7 % (35.5-45.6) L 06/03/22 10:25 MCV 88 fl (84-94) 06/03/22 10:25 MCH 30 pg (28-32) 06/03/22 10:25 MCHC 34 % (32-34) 06/03/22 10:25 RDW 13.3 % (13.2-15.2) 06/03/22 10:25 Plt Count 431 K/mm3 (140-440) 06/03/22 10:25 Lymph % (Auto) 22.5 % (13.4-35.0) 06/03/22 10:25 [place] % (Auto) 11.8 % (0.0-7.3) H 06/03/22 10:25 Eos % (Auto) 0.5 % (0.0-4.3) 06/03/22 10:25 Baso % (Auto) 0.4 % (0.0-1.8) 06/03/22 10:25 Lymph # (Auto) 1.0 K/mm3 (1.2-5.4) L 06/03/22 10:25 [place] # (Auto) 0.5 K/mm3 (0.0-0.8) 06/03/22 10:25 Eos # (Auto) 0.0 K/mm3 (0.0-0.4) 06/03/22 10:25 Baso # (Auto) 0.0 K/mm3 (0.0-0.1) 06/03/22 10:25 Seg Neutrophils % 64.8 % (40.0-70.0) 06/03/22 10:25 Seg Neutrophils # 2.9 K/mm3 (1.8-7.7) 06/03/22 10:25 Sodium 135 mmol/L (137-145) L 06/03/22 10:25 Potassium 4.9 mmol/L (3.6-5.0) 06/03/22 10:25 Chloride 96.9 mmol/L (98-107) L 06/03/22 10:25 Carbon Dioxide 25 mmol/L (22-30) 06/03/22 10:25 Anion Gap 18 mmol/L 06/03/22 10:25 BUN 15 mg/dL (9-20) 06/03/22 10:25 Creatinine 0.9 mg/dL (0.8-1.3) 06/03/22 10:25 Estimated GFR > 60 ml/min 06/03/22 10:25 BUN/Creatinine Ratio 17 % 06/03/22 10:25 Glucose 92 mg/dL (75-100) 06/03/22 10:25 Hemoglobin A1c 5.9 % (4-6) 06/03/22 10:25 Calcium 9.5 mg/dL (8.4-10.2) 06/03/22 10:25 Total Bilirubin 0.40 mg/dL (0.1-1.2) 06/03/22 10:25 AST 39 units/L (5-40) 06/03/22 10:25 ALT 36 units/L (7-56) 06/03/22 10:25 Alkaline Phosphatase 94 units/L (35-129) 06/03/22 10:25 Total Protein 6.7 g/dL (6.3-8.2) 06/03/22 10:25 Albumin 3.8 g/dL (3.9-5) L 06/03/22 10:25 Albumin/Globulin Ratio 1.3 % 06/03/22 10:25 Triglycerides 100 mg/dL (2-149) 06/03/22 10:25 Cholesterol 111 mg/dL (50-199) 06/03/22 10:25 LDL Cholesterol Direct 49 mg/dL (50-130) L 06/03/22 10:25 HDL Cholesterol 50 mg/dL (40-59) 06/03/22 10:25 Cholesterol/HDL Ratio 2.22 % 06/03/22 10:25 TSH 1.790 mlU/mL (0.270-4.200) 06/03/22 10:25 Last Vital Signs Temp 98.8 F 06/08/22 19:12 Pulse 84 06/08/22 19:12 Resp 18 06/08/22 19:12 BP 64/29 06/08/22 19:12 Pulse Ox 99 06/08/22 19:12
[2022-06-09] MEDS: NAPROXEN 500 MG TAB PO SCH ×2 (09:37→21:05)
[2022-06-09] MEDS: PANTOPRAZOLE 20 MG TAB PO SCH (09:38)
[2022-06-09] MEDS: MEMANTINE 5 MG TAB PO SCH (09:38)
[2022-06-09] MEDS: levETIRAcetam 500 MG TAB PO SCH ×2 (09:38→21:05)
--- NOTE | 2022-06-09 11:40 | Progress Note ---
Assessment and Plan Assessment and plan: 06/09: Patient seen and examined, Hypotension yesterday noted but no symptoms, patient not on any bp meds. Repeat blood pressure this morning 107/63. I will start him empirically on midodrine 2.5 mg 3 times daily. Continue to monitor closely. Discussed with nursing staff. - Patient Problems (1) Vascular dementia with behavior disturbance Current Visit: Yes Status: Acute Plan to address problem: Verbal prompting, verbal redirection, benzodiazepine therapy as clinically indicated. (2) Cerebral atherosclerosis Current Visit: Yes Status: Acute Plan to address problem: Risk factor reduction, antiplatelet therapy as clinically indicated. (3) Malnutrition Current Visit: Yes Status: Acute Qualifiers: Protein-calorie malnutrition severity: moderate Plan to address problem: Increase protein intake, dietary supplementation. (4) Hypertension Current Visit: Yes Status: Acute Qualifiers: Hypertension type: primary hypertension Qualified Code(s): I10 - Essential (primary) hypertension Plan to address problem: Monitor blood pressure every shift, continue medical management. (5) Hyperlipidemia Current Visit: Yes Status: Acute Plan to address problem: Low-cholesterol diet, statin therapy, supportive care. (6) GERD (gastroesophageal reflux disease) Current Visit: Yes Status: Acute Qualifiers: Esophagitis presence: without esophagitis Qualified Code(s): K21.9 - Gastro-esophageal reflux disease without esophagitis Plan to address problem: PPI therapy, supportive care (7) Seizure disorder Current Visit: Yes Status: Acute Plan to address problem: Continue Keppra therapy, no seizure activity at this time. (8) Advance care planning Current Visit: Yes Status: Acute Plan to address problem: Disease education data, care plan discussed, diagnoses discussed, prognosis discussed, patient is full code. Patient acknowledges understanding and agreement with care plan, +30 minutes. (9) Preventative health care Current Visit: Yes Status: Acute Plan to address problem: Patient counseled regarding risk factor reduction, increase protein intake, outpatient follow-up with primary care physician for all age and risk factor appropriate screening test. +30 minutes. History Interval history: 62 YO Male with Vascular Dementia with Behavioral Disturbance, Cerebral Atherosclerosis, HTN, HLD, GERD, Seizure Disorder, MDD admitted to [facility] for psychiatric stabilization. Consult placed by Dr. Anderson for medical management. Patient seen and evaluated in the recreation room. Patient resting comfortably. No reported nursing events. Patient appears to be at baseline level of cognition and function. Hospitalist Physical - Physical exam Narrative exam: General appearance: Present: no acute distress, cachectic - EENT Eyes: Present: PERRL ENT: hearing decreased - Neck Neck: Present: supple - Respiratory Respiratory effort: normal Respiratory: bilateral: CTA - Cardiovascular Rhythm: regular Heart Sounds: Present: S1 & S2 - Extremities Extremities: no ischemia Peripheral Pulses: within normal limits - Abdominal General gastrointestinal: soft, non-tender, non-distended - Integumentary Integumentary: Present: clear, dry - Psychiatric Psychiatric: cooperative - Neurologic Neurologic: CNII-XII intact - Constitutional Vitals: Temp Pulse Resp BP Pulse Ox 98.8 F 84 18 64/29 99 06/08/22 19:12 06/08/22 19:12 06/08/22 19:12 06/08/22 19:12 06/08/22 19:12 General appearance: Present: no acute distress, cachectic Results - Labs CBC & Chem 7: 06/03/22 10:25 06/03/22 10:25 Labs: Laboratory Last Values WBC 4.4 K/mm3 (4.5-11.0) L 06/03/22 10:25 RBC 3.94 M/mm3 (3.65-5.03) 06/03/22 10:25 Hgb 11.6 gm/dl (11.8-15.2) L 06/03/22 10:25 Hct 34.7 % (35.5-45.6) L 06/03/22 10:25 MCV 88 fl (84-94) 06/03/22 10:25 MCH 30 pg (28-32) 06/03/22 10:25 MCHC 34 % (32-34) 06/03/22 10:25 RDW 13.3 % (13.2-15.2) 06/03/22 10:25 Plt Count 431 K/mm3 (140-440) 06/03/22 10:25 Lymph % (Auto) 22.5 % (13.4-35.0) 06/03/22 10:25 [place] % (Auto) 11.8 % (0.0-7.3) H 06/03/22 10:25 Eos % (Auto) 0.5 % (0.0-4.3) 06/03/22 10:25 Baso % (Auto) 0.4 % (0.0-1.8) 06/03/22 10:25 Lymph # (Auto) 1.0 K/mm3 (1.2-5.4) L 06/03/22 10:25 [place] # (Auto) 0.5 K/mm3 (0.0-0.8) 06/03/22 10:25 Eos # (Auto) 0.0 K/mm3 (0.0-0.4) 06/03/22 10:25 Baso # (Auto) 0.0 K/mm3 (0.0-0.1) 06/03/22 10:25 Seg Neutrophils % 64.8 % (40.0-70.0) 06/03/22 10:25 Seg Neutrophils # 2.9 K/mm3 (1.8-7.7) 06/03/22 10:25 Sodium 135 mmol/L (137-145) L 06/03/22 10:25 Potassium 4.9 mmol/L (3.6-5.0) 06/03/22 10:25 Chloride 96.9 mmol/L (98-107) L 06/03/22 10:25 Carbon Dioxide 25 mmol/L (22-30) 06/03/22 10:25 Anion Gap 18 mmol/L 06/03/22 10:25 BUN 15 mg/dL (9-20) 06/03/22 10:25 Creatinine 0.9 mg/dL (0.8-1.3) 06/03/22 10:25 Estimated GFR > 60 ml/min 06/03/22 10:25 BUN/Creatinine Ratio 17 % 06/03/22 10:25 Glucose 92 mg/dL (75-100) 06/03/22 10:25 Hemoglobin A1c 5.9 % (4-6) 06/03/22 10:25 Calcium 9.5 mg/dL (8.4-10.2) 06/03/22 10:25 Total Bilirubin 0.40 mg/dL (0.1-1.2) 06/03/22 10:25 AST 39 units/L (5-40) 06/03/22 10:25 ALT 36 units/L (7-56) 06/03/22 10:25 Alkaline Phosphatase 94 units/L (35-129) 06/03/22 10:25 Total Protein 6.7 g/dL (6.3-8.2) 06/03/22 10:25 Albumin 3.8 g/dL (3.9-5) L 06/03/22 10:25 Albumin/Globulin Ratio 1.3 % 06/03/22 10:25 Triglycerides 100 mg/dL (2-149) 06/03/22 10:25 Cholesterol 111 mg/dL (50-199) 06/03/22 10:25 LDL Cholesterol Direct 49 mg/dL (50-130) L 06/03/22 10:25 HDL Cholesterol 50 mg/dL (40-59) 06/03/22 10:25 Cholesterol/HDL Ratio 2.22 % 06/03/22 10:25 TSH 1.790 mlU/mL (0.270-4.200) 06/03/22 10:25 [place]/IV: Voiding Method Toilet Active Medications - Current Medications Current Medications: Generic Name Dose Route Start Last Admin Trade Name Freq PRN Reason Stop Dose Admin Atorvastatin Calcium 40 mg 06/04/22 22:00 06/08/22 21:43 Atorvastatin 40 Mg Tab PO 40 mg QHS NAM Administration Donepezil HCl 10 mg 06/04/22 22:00 06/08/22 21:45 Donepezil 10 Mg Tab PO 10 mg QHS NAM Administration Levetiracetam 500 mg 06/04/22 22:00 06/09/22 09:38 Levetiracetam 500 Mg Tab PO 500 mg BID NAM Administration Memantine 5 mg 06/05/22 10:00 06/09/22 09:38 Memantine 5 Mg Tab PO 5 mg QDAY NAM Administration Naproxen 500 mg 06/04/22 22:00 06/09/22 09:37 Naproxen 500 Mg Tab PO 500 mg BID NAM Administration Olanzapine 5 mg 06/05/22 10:00 06/09/22 09:38 Olanzapine 5 Mg Tab PO 5 mg QDAY NAM Administration Pantoprazole Sodium 20 mg 06/05/22 10:00 06/09/22 09:38 Pantoprazole 20 Mg Tab PO 20 mg QDAY NAM Administration Trazodone HCl 100 mg 06/04/22 22:00 06/08/22 21:45 Trazodone 100 Mg Tab PO 100 mg QHS NAM Administration Nutrition/Malnutrition Assess - Dietary Evaluation Nutrition/Malnutrition Findings: Nutrition Notes Start: 06/04/22 12:51 Freq: Status: Active Protocol: Document 06/04/22 12:51 ABHINAV (Rec: 06/04/22 12:58 ABHINAV [id number]) Nutrition Notes Need for Assessment generated from: Low BMI Initial or Follow up Assessment Current Diagnosis Hyperlipidemia Other Pertinent Diagnosis Schizophrenia, Suicidal ideation Current Diet Regular Labs/Tests Reviewed Pertinent Medications Reviewed Height 5 ft 7 in Weight 42.1 kg [place] Body Weight (kg) 67.27 BMI 14.5 Weight Status Underweight Subjective/Other Information Pt screened for low BMI. He has consumed 88% of 2 meals so far. Per MD H&P, pt with no recent wt changes. Burn Absent Trauma Absent Current % PO Good (75-100%) Minimum of two criteria No #1 Nutrition Diagnosis Underweight Etiology hx of schizophrenia, advanced age As Evidenced by Signs and Symptoms BMI 14.5 Is patient on ventilator? No Is Patient Ambulatory and/or Out of Bed Yes REE-([place]-ambulatory/OOB) [ 1527.019 NUTR.MSJOOB] Kcal/Kg value to use for calculation 45 Approximate Energy Requirements Using 1895 kcal/Kg Calculation Used for Recommendations Kcal/kg Additional Notes Pro needs 1.2-1.5g/k-63g/ day Fluid needs 1ml/kcal Nutrition Intervention Change Diet Order: Continue current diet order Add Supplement/Snack (indicate name/kcal Ensure High Protein BID /protein ) Provides kCal: 320 Provides Protein (gm) 32 Goal #1 PO intake of meals plus ONS to meet 100% energy and pro needs Goal #2 Wt maintenance and/or gain Anticipated Discharge Needs: High-calorie/high-protein diet ; 1-2 ONS daily for wt maintenance Follow-Up By: 06/11/22 Additional Comments F/U: stable intakes, wt
[2022-06-09] MEDS: MIDODRINE 2.5 MG TAB PO SCH ×2 (12:40→16:00)
[2022-06-09] MEDS: DONEPEZIL 10 MG TAB PO SCH (21:05)
[2022-06-09] MEDS: traZODone 100 MG TAB PO SCH (21:05)
[2022-06-10] MEDS: MIDODRINE 2.5 MG TAB PO SCH ×3 (09:04→16:50)
--- NOTE | 2022-06-10 09:12 | Progress Note ---
Subjective Date of service: 06/10/22 Subjective Comment: 06/10:The patient was seen in his room this morning. He reports feeling "a lil bit better." Patient reports sleeping well, but reports waking up vomiting attributed to gastritis. Patient reports good appetite. Pt reports depression "off and on," and rates it 04/11. Patient denies suicidal ideation at this time. Pt continues to endorse auditory hallucinations and reports visual hallucinations in the morning. 06/09:The patient was seen this morning. He states he is doing well. He reports sleep and appetite is good. He denies any current suicidal/homicidal ideation but continues to endorse non command auditory hallucinations 06/08:The patient was seen in the activity room. He reports doing better but continue to have auditory hallucinations "they keep me up if I don't my meds." He denies any current suicidal/homicidal ideation and denies visual hallucinations. 06/07: The patient was seen this morning. He states he feels better. He reports sleep and appetite is good. He denies any current suicidal/homicidal ideation but continues to endorse non command auditory hallucinations " they keep telling me it's time to get up." 06/06:The patient was seen at breakfast. He states he is doing well. He continues to endorse non-command auditory hallucinations. He denies any current suicidal/homicidal ideation and denies visual hallucinations. 06/05:The patient was seen this morning. He states he feels better. The patient reports sleep and appetite as good. He denies any current suicidal/homicidal ideation but continues to endorse non command auditory hallucinations. REVIEW OF SYSTEMS Constitutional: Negative for weight loss ENT: Negative for stridor Respiratory: Negative for cough or hemoptysis All other systems reviewed and are negative MENTAL STATUS EXAMINATION General Appearance and Behavior: Age appropriate, wearing appropriate clothes, cooperative, polite with questioning, good eye contact Cooperation: cooperative Psychomotor Behavior: Psychomotor normal Mood: Calm Affect and affective range: congruent with stated affect Thought Process: goal directed Thought Content: hallucinations Speech: Normal volume, Regular rate and rhythm Suicidal Ideation: Denies Homicidal Ideation: Denies Hallucination: Auditory, visual Delusions: None Impulse Control: Limited Insight and Judgment: Limited Memory: Intact Attention: attentive Orientation: Alert and oriented Diagnosis: Schizophrenia Disorder Treatment Plan Patient admitted for inpatient psychiatric evaluation, medication adjustment and close monitoring The patient's behavior, mood, sleep and appetite will be closely monitored. Patient enrolled in individual and group therapeutic sessions and encouraged to attend. Patient provided with a safe and structured environment. Patient's physical health needs will be addressed by the Hospitalist. Martín kumar Consulted Labs including CBC, CMP, Lipid profile and Hemoglobin A1C levels ordered for baseline reference Social Assessment will be completed and the Printing Equipment Mechanic will work with patient and family to ensure a suitable and safe disposition Medication adjustment will be made as clinically indicated Continue home meds Continue Zyprexa to 5mg po daily [facility]: - Start Trazodone 50 mg po QHS & 50 mg po QHS PRN between 10 PM & 2 AM for insomnia - Start Melatonin 5 mg po QHS to promote circadian rhythm The patient agreed on the treatment plan, understood the risk, benefit, alternative treatment, potential consequence of no treatment, and gave informed consent. Estimated days: 7 Post hospital care: primary care provider, psychiatric provider Case staffed with Dr. Marquez Legal Status: Voluntary Reaction to Hospitalization: Accepting Medications and Allergies Medications and Allergies Allergies Allergy/AdvReac Type Severity Reaction Status Date / Time haloperidol Allergy Seizure Verified 06/03/22 10:13 Home Medications Medication Instructions Recorded Confirmed Last Taken Type Atorvastatin [Lipitor Tab] 40 mg PO HS 06/04/22 06/08/22 Unknown History Cyclobenzaprine [Flexeril] 10 mg PO TID PRN 06/04/22 06/04/22 Unknown History Memantine HCl 5 mg PO QDAY 06/04/22 06/08/22 Unknown History Multivit-Min/FA/Lycopen/Lutein 1 tab PO UNK 06/04/22 06/08/22 Unknown History [Certavite Senior Tablet] Naproxen [Naprosyn] 500 mg PO BID 06/04/22 06/04/22 Unknown History Omeprazole 20 mg PO DAILY 06/04/22 06/08/22 Unknown History amantadine HCL [Amantadine] 100 mg PO UNK 06/04/22 06/08/22 Unknown History donepeziL [Aricept] 10 mg PO HS 06/04/22 06/08/22 Unknown History levETIRAcetam [Keppra TAB] 500 mg PO BID 06/04/22 06/08/22 Unknown History traZODone [Desyrel] 100 mg PO HS 06/04/22 06/08/22 Unknown History Active Meds: Active Medications Atorvastatin Calcium (Atorvastatin 40 Mg Tab) 40 mg PO QHS [facility] Last Admin: 06/09/22 21:05 Dose: 40 mg Donepezil HCl (Donepezil 10 Mg Tab) 10 mg PO QHS [facility] Last Admin: 06/09/22 21:05 Dose: 10 mg Levetiracetam (Levetiracetam 500 Mg Tab) 500 mg PO BID [facility] Last Admin: 06/09/22 21:05 Dose: 500 mg Memantine (Memantine 5 Mg Tab) 5 mg PO QDAY [facility] Last Admin: 06/09/22 09:38 Dose: 5 mg Midodrine (Midodrine 2.5 Mg Tab) 2.5 mg PO TID@0800,1200,1600 [facility] [place] Last Admin: 06/10/22 09:04 Dose: 2.5 mg Naproxen (Naproxen 500 Mg Tab) 500 mg PO BID [facility] Last Admin: 06/09/22 21:05 Dose: 500 mg Olanzapine (Olanzapine 5 Mg Tab) 5 mg PO QDAY [facility] Last Admin: 06/09/22 09:38 Dose: 5 mg Pantoprazole Sodium (Pantoprazole 20 Mg Tab) 20 mg PO QDAY [facility] Last Admin: 06/09/22 09:38 Dose: 20 mg Trazodone HCl (Trazodone 100 Mg Tab) 100 mg PO QHS [facility] Last Admin: 06/09/22 21:05 Dose: 100 mg Results - Results Labs/Vitals: Laboratory Last Values WBC 4.4 K/mm3 (4.5-11.0) L 06/03/22 10:25 RBC 3.94 M/mm3 (3.65-5.03) 06/03/22 10:25 Hgb 11.6 gm/dl (11.8-15.2) L 06/03/22 10:25 Hct 34.7 % (35.5-45.6) L 06/03/22 10:25 MCV 88 fl (84-94) 06/03/22 10:25 MCH 30 pg (28-32) 06/03/22 10:25 MCHC 34 % (32-34) 06/03/22 10:25 RDW 13.3 % (13.2-15.2) 06/03/22 10:25 Plt Count 431 K/mm3 (140-440) 06/03/22 10:25 Lymph % (Auto) 22.5 % (13.4-35.0) 06/03/22 10:25 [place] % (Auto) 11.8 % (0.0-7.3) H 06/03/22 10:25 Eos % (Auto) 0.5 % (0.0-4.3) 06/03/22 10:25 Baso % (Auto) 0.4 % (0.0-1.8) 06/03/22 10:25 Lymph # (Auto) 1.0 K/mm3 (1.2-5.4) L 06/03/22 10:25 [place] # (Auto) 0.5 K/mm3 (0.0-0.8) 06/03/22 10:25 Eos # (Auto) 0.0 K/mm3 (0.0-0.4) 06/03/22 10:25 Baso # (Auto) 0.0 K/mm3 (0.0-0.1) 06/03/22 10:25 Seg Neutrophils % 64.8 % (40.0-70.0) 06/03/22 10:25 Seg Neutrophils # 2.9 K/mm3 (1.8-7.7) 06/03/22 10:25 Sodium 135 mmol/L (137-145) L 06/03/22 10:25 Potassium 4.9 mmol/L (3.6-5.0) 06/03/22 10:25 Chloride 96.9 mmol/L (98-107) L 06/03/22 10:25 Carbon Dioxide 25 mmol/L (22-30) 06/03/22 10:25 Anion Gap 18 mmol/L 06/03/22 10:25 BUN 15 mg/dL (9-20) 06/03/22 10:25 Creatinine 0.9 mg/dL (0.8-1.3) 06/03/22 10:25 Estimated GFR > 60 ml/min 06/03/22 10:25 BUN/Creatinine Ratio 17 % 06/03/22 10:25 Glucose 92 mg/dL (75-100) 06/03/22 10:25 Hemoglobin A1c 5.9 % (4-6) 06/03/22 10:25 Calcium 9.5 mg/dL (8.4-10.2) 06/03/22 10:25 Total Bilirubin 0.40 mg/dL (0.1-1.2) 06/03/22 10:25 AST 39 units/L (5-40) 06/03/22 10:25 ALT 36 units/L (7-56) 06/03/22 10:25 Alkaline Phosphatase 94 units/L (35-129) 06/03/22 10:25 Total Protein 6.7 g/dL (6.3-8.2) 06/03/22 10:25 Albumin 3.8 g/dL (3.9-5) L 06/03/22 10:25 Albumin/Globulin Ratio 1.3 % 06/03/22 10:25 Triglycerides 100 mg/dL (2-149) 06/03/22 10:25 Cholesterol 111 mg/dL (50-199) 06/03/22 10:25 LDL Cholesterol Direct 49 mg/dL (50-130) L 06/03/22 10:25 HDL Cholesterol 50 mg/dL (40-59) 06/03/22 10:25 Cholesterol/HDL Ratio 2.22 % 06/03/22 10:25 TSH 1.790 mlU/mL (0.270-4.200) 06/03/22 10:25 Last Vital Signs Temp 98.4 F 06/09/22 19:08 Pulse 82 06/09/22 19:08 Resp 18 06/09/22 21:05 BP 96/65 06/09/22 19:08 Pulse Ox 100 06/09/22 19:08
[2022-06-10] MEDS: NAPROXEN 500 MG TAB PO SCH (09:22)
[2022-06-10] MEDS: levETIRAcetam 500 MG TAB PO SCH (09:23)
[2022-06-10] MEDS: PANTOPRAZOLE 20 MG TAB PO SCH (09:23)
[2022-06-10] MEDS: MEMANTINE 5 MG TAB PO SCH (09:24)
--- NOTE | 2022-06-10 10:26 | Discharge Summary ---
Providers - Providers Date of Admission: 06/04/22 01:10 Date of discharge: 06/10/22 Attending physician: JOSÉ LUIS CLANCY MD 06/03/22 20:16 Consult to Physician [CONS] Routine Comment: Consulting Provider: MARCIO HOLLAND Physician Instructions: Reason For Exam: manage medical conditionss 06/08/22 14:58 Physical Therapy Evaluation and Treat [CONS] Routine Comment: Reason For Exam: Patient not walking Mode of Transport?: Wheelchair 06/08/22 15:01 Occupational Therapy Evaluate and Treat [CONS] Routine Comment: Reason For Exam: needs assistance with ADL's Primary care physician: BUSINESS RECORDS MANAGER Hospitalization Reason for admission: suicidal ideation Admitting Diagnosis: F33.3 - MAJOR DEPRESSV DISORDER, RECURRENT, SEVERE W PSYCH SYMPTOMS Condition: Stable Hospital course: The patient was provided inpatient psychiatric treatment with safe and supportive environment, group/individual therapy, psychiatric medication, medication adjustment, adverse effect monitor, medical evaluation, medical treatment, social service assessment, social support meeting, placement asses sment and psycho-education. The patients mood, cognition, behavior, motivation, compliance to treatment and appreciation on family/social support are improved and stabilized. At the time of discharge, the patient had no suicidal ideas, no homicidal ideas, no aggressive thoughts, no endangering behavior and no debilitating adverse effects. The patient agreed on the treatment plan, understood the risk, benefit, alternative treatment, potential consequence of no treatment, and gave informed consent. Progress Note: 06/10:The patient was seen in his room this morning. He reports feeling "a lil bit better." Patient reports sleeping well, but reports waking up vomiting attributed to gastritis. Patient reports good appetite. Pt reports depression "off and on," and rates it 10. Patient denies suicidal ideation at this time. Pt continues to endorse auditory hallucinations and reports visual hallucinations in the morning. 06/09:The patient was seen this morning. He states he is doing well. He reports sleep and appetite is good. He denies any current suicidal/homicidal ideation but continues to endorse non command auditory hallucinations 06/08:The patient was seen in the activity room. He reports doing better but continue to have auditory hallucinations "they keep me up if I don't my meds." He denies any current suicidal/homicidal ideation and denies visual hallucinations. 06/07: The patient was seen this morning. He states he feels better. He reports sleep and appetite is good. He denies any current suicidal/homicidal ideation but continues to endorse non command auditory hallucinations " they keep telling me it's time to get up." 06/06:The patient was seen at breakfast. He states he is doing well. He continues to endorse non-command auditory hallucinations. He denies any current suicidal/homicidal ideation and denies visual hallucinations. 06/05:The patient was seen this morning. He states he feels better. The patient reports sleep and appetite as good. He denies any current suicidal/homicidal ideation but continues to endorse non command auditory hallucinations. Disposition: 30 STILL A PATIENT Allergies/Adverse Reactions: Allergies haloperidol Allergy (Verified 06/03/22 10:13) Seizure Vital Signs: Last Vital Signs Temp 98.4 F 06/09/22 19:08 Pulse 82 06/09/22 19:08 Resp 18 06/09/22 21:05 BP 96/65 06/09/22 19:08 Pulse Ox 100 06/09/22 19:08 Last Lab: Laboratory Last Values WBC 4.4 K/mm3 (4.5-11.0) L 06/03/22 10:25 RBC 3.94 M/mm3 (3.65-5.03) 06/03/22 10:25 Hgb 11.6 gm/dl (11.8-15.2) L 06/03/22 10:25 Hct 34.7 % (35.5-45.6) L 06/03/22 10:25 MCV 88 fl (84-94) 06/03/22 10:25 MCH 30 pg (28-32) 06/03/22 10:25 MCHC 34 % (32-34) 06/03/22 10:25 RDW 13.3 % (13.2-15.2) 06/03/22 10:25 Plt Count 431 K/mm3 (140-440) 06/03/22 10:25 Lymph % (Auto) 22.5 % (13.4-35.0) 06/03/22 10:25 [place] % (Auto) 11.8 % (0.0-7.3) H 06/03/22 10:25 Eos % (Auto) 0.5 % (0.0-4.3) 06/03/22 10:25 Baso % (Auto) 0.4 % (0.0-1.8) 06/03/22 10:25 Lymph # (Auto) 1.0 K/mm3 (1.2-5.4) L 06/03/22 10:25 [place] # (Auto) 0.5 K/mm3 (0.0-0.8) 06/03/22 10:25 Eos # (Auto) 0.0 K/mm3 (0.0-0.4) 06/03/22 10:25 Baso # (Auto) 0.0 K/mm3 (0.0-0.1) 06/03/22 10:25 Seg Neutrophils % 64.8 % (40.0-70.0) 06/03/22 10:25 Seg Neutrophils # 2.9 K/mm3 (1.8-7.7) 06/03/22 10:25 Sodium 135 mmol/L (137-145) L 06/03/22 10:25 Potassium 4.9 mmol/L (3.6-5.0) 06/03/22 10:25 Chloride 96.9 mmol/L (98-107) L 06/03/22 10:25 Carbon Dioxide 25 mmol/L (22-30) 06/03/22 10:25 Anion Gap 18 mmol/L 06/03/22 10:25 BUN 15 mg/dL (9-20) 06/03/22 10:25 Creatinine 0.9 mg/dL (0.8-1.3) 06/03/22 10:25 Estimated GFR > 60 ml/min 06/03/22 10:25 BUN/Creatinine Ratio 17 % 06/03/22 10:25 Glucose 92 mg/dL (75-100) 06/03/22 10:25 Hemoglobin A1c 5.9 % (4-6) 06/03/22 10:25 Calcium 9.5 mg/dL (8.4-10.2) 06/03/22 10:25 Total Bilirubin 0.40 mg/dL (0.1-1.2) 06/03/22 10:25 AST 39 units/L (5-40) 06/03/22 10:25 ALT 36 units/L (7-56) 06/03/22 10:25 Alkaline Phosphatase 94 units/L (35-129) 06/03/22 10:25 Total Protein 6.7 g/dL (6.3-8.2) 06/03/22 10:25 Albumin 3.8 g/dL (3.9-5) L 06/03/22 10:25 Albumin/Globulin Ratio 1.3 % 06/03/22 10:25 Triglycerides 100 mg/dL (2-149) 06/03/22 10:25 Cholesterol 111 mg/dL (50-199) 06/03/22 10:25 LDL Cholesterol Direct 49 mg/dL (50-130) L 06/03/22 10:25 HDL Cholesterol 50 mg/dL (40-59) 06/03/22 10:25 Cholesterol/HDL Ratio 2.22 % 06/03/22 10:25 TSH 1.790 mlU/mL (0.270-4.200) 06/03/22 10:25 Core Measure Documentation - Palliative Care Palliative Care/ Comfort Measures: Not Applicable - Core Measures Any of the following diagnoses?: none - VTE Discharge Requirements Deep Vein Thrombosis/Pulmonary Embolism Present on Admission: No Exam - Constitutional Vitals: Temp Pulse Resp BP Pulse Ox 98.4 F 82 18 96/65 100 06/09/22 19:08 06/09/22 19:08 06/09/22 21:05 06/09/22 19:08 06/09/22 19:08 Plan Activity: advance as tolerated Weight Bearing Status: Weight Bear as Tolerated Diet: regular Durable Medical Equipment Needed Upon Discharge: Wheelchair Care Plan Goals: Maintain good and stable mental health. Plan of Treatment: The patient should be compliant with medications, not to use drugs and not to drink alcohol.The patient understands that if suicidal ideas, homicidal ideas, or any endangering thoughts/behavior arise, they should immediately seek for emergent assistance including but not limited to crisis hot line and emergency room. Follow up with outpatient Psychiatrist and PCP within 7 - 14 days of discharge. Follow up with: PRIMARY CARE,MD [Primary Care Provider] - 7 Days Prescriptions: traZODone [Desyrel] 100 mg PO QHS 30 Days #30 tablet OLANzapine [ZyPREXA] 5 mg PO QDAY 30 Days #30 tablet
[2022-06-10 10:31] VITALS: BP 109/65
--- NOTE | 2022-06-10 11:08 | Progress Note ---
Assessment and Plan Assessment and plan: 06/09: Patient seen and examined, Hypotension yesterday noted but no symptoms, patient not on any bp meds. Repeat blood pressure this morning 107/63. I will start him empirically on midodrine 2.5 mg 3 times daily. Continue to monitor closely. Discussed with nursing staff. 06/10: Patient seen and examined, continue supportive care, BP stable on the Midodrine, patient is emotional this morning (1) Vascular dementia with behavior disturbance Current Visit: Yes Status: Acute Plan to address problem: Verbal prompting, verbal redirection, benzodiazepine therapy as clinically indicated. (2) Cerebral atherosclerosis Current Visit: Yes Status: Acute Plan to address problem: Risk factor reduction, antiplatelet therapy as clinically indicated. (3) Malnutrition Current Visit: Yes Status: Acute Qualifiers: Protein-calorie malnutrition severity: moderate Plan to address problem: Increase protein intake, dietary supplementation. (4) Hypertension Current Visit: Yes Status: Acute Qualifiers: Hypertension type: primary hypertension Qualified Code(s): I10 - Essential (primary) hypertension Plan to address problem: Monitor blood pressure every shift, continue medical management. (5) Hyperlipidemia Current Visit: Yes Status: Acute Plan to address problem: Low-cholesterol diet, statin therapy, supportive care. (6) GERD (gastroesophageal reflux disease) Current Visit: Yes Status: Acute Qualifiers: Esophagitis presence: without esophagitis Qualified Code(s): K21.9 - Gas tro-esophageal reflux disease without esophagitis Plan to address problem: PPI therapy, supportive care (7) Seizure disorder Current Visit: Yes Status: Acute Plan to address problem: Continue Keppra therapy, no seizure activity at this time. (8) Advance care planning Current Visit: Yes Status: Acute Plan to address problem: Disease education data, care plan discussed, diagnoses discussed, prognosis discussed, patient is full code. Patient acknowledges understanding and agre ement with care plan, +30 minutes. (9) Preventative health care Current Visit: Yes Status: Acute Plan to address problem: Patient counseled regarding risk factor reduction, increase protein intake, outpatient follow-up with primary care physician for all age and risk factor appropriate screening test. +30 minutes. History Interval history: 62 YO Male with Vascular Dementia with Behavioral Disturbance, Cerebral Atherosclerosis, HTN, HLD, GERD, Seizure Disorder, MDD admitted to [facility] for psychiatric stabilization. Consult placed by Dr. Anderson for medical management. Patient seen and evaluated in the recreation room. Patient resting comfortably. No reported nursing events. Patient appears to be at baseline level of cognition and function. Hospitalist Physical - Physical exam Narrative exam: General appearance: Present: no acute distress, cachectic - EENT Eyes: Present: PERRL ENT: hearing decreased - Neck Neck: Present: supple - Respiratory Respiratory effort: normal Respiratory: bilateral: CTA - Cardiovascular Rhythm: regular Heart Sounds: Present: S1 & S2 - Extremities Extremities: no ischemia Peripheral Pulses: within normal limits - Abdominal General gastrointestinal: soft, non-tender, non-distended - Integumentary Integumentary: Present: clear, dry - Psychiatric Psychiatric: cooperative - Neurologic Neurologic: CNII-XII intact - Constitutional Vitals: Temp Pulse Resp BP Pulse Ox 98.8 F 83 18 109/65 99 06/10/22 07:39 06/10/22 07:39 06/10/22 07:39 06/10/22 07:39 06/10/22 07:39 General appearance: Present: no acute distress, cachectic Results - Labs CBC & Chem 7: 06/03/22 10:25 06/03/22 10:25 Labs: Laboratory Last Values WBC 4.4 K/mm3 (4.5-11.0) L 06/03/22 10:25 RBC 3.94 M/mm3 (3.65-5.03) 06/03/22 10:25 Hgb 11.6 gm/dl (11.8-15.2) L 06/03/22 10:25 Hct 34.7 % (35.5-45.6) L 06/03/22 10:25 MCV 88 fl (84-94) 06/03/22 10:25 MCH 30 pg (28-32) 06/03/22 10:25 MCHC 34 % (32-34) 06/03/22 10:25 RDW 13.3 % (13.2-15.2) 06/03/22 10:25 Plt Count 431 K/mm3 (140-440) 06/03/22 10:25 Lymph % (Auto) 22.5 % (13.4-35.0) 06/03/22 10:25 [place] % (Auto) 11.8 % (0.0-7.3) H 06/03/22 10:25 Eos % (Auto) 0.5 % (0.0-4.3) 06/03/22 10:25 Baso % (Auto) 0.4 % (0.0-1.8) 06/03/22 10:25 Lymph # (Auto) 1.0 K/mm3 (1.2-5.4) L 06/03/22 10:25 [place] # (Auto) 0.5 K/mm3 (0.0-0.8) 06/03/22 10:25 Eos # (Auto) 0.0 K/mm3 (0.0-0.4) 06/03/22 10:25 Baso # (Auto) 0.0 K/mm3 (0.0-0.1) 06/03/22 10:25 Seg Neutrophils % 64.8 % (40.0-70.0) 06/03/22 10:25 Seg Neutrophils # 2.9 K/mm3 (1.8-7.7) 06/03/22 10:25 Sodium 135 mmol/L (137-145) L 06/03/22 10:25 Potassium 4.9 mmol/L (3.6-5.0) 06/03/22 10:25 Chloride 96.9 mmol/L (98-107) L 06/03/22 10:25 Carbon Dioxide 25 mmol/L (22-30) 06/03/22 10:25 Anion Gap 18 mmol/L 06/03/22 10:25 BUN 15 mg/dL (9-20) 06/03/22 10:25 Creatinine 0.9 mg/dL (0.8-1.3) 06/03/22 10:25 Estimated GFR > 60 ml/min 06/03/22 10:25 BUN/Creatinine Ratio 17 % 06/03/22 10:25 Glucose 92 mg/dL (75-100) 06/03/22 10:25 Hemoglobin A1c 5.9 % (4-6) 06/03/22 10:25 Calcium 9.5 mg/dL (8.4-10.2) 06/03/22 10:25 Total Bilirubin 0.40 mg/dL (0.1-1.2) 06/03/22 10:25 AST 39 units/L (5-40) 06/03/22 10:25 ALT 36 units/L (7-56) 06/03/22 10:25 Alkaline Phosphatase 94 units/L (35-129) 06/03/22 10:25 Total Protein 6.7 g/dL (6.3-8.2) 06/03/22 10:25 Albumin 3.8 g/dL (3.9-5) L 06/03/22 10:25 Albumin/Globulin Ratio 1.3 % 06/03/22 10:25 Triglycerides 100 mg/dL (2-149) 06/03/22 10:25 Cholesterol 111 mg/dL (50-199) 06/03/22 10:25 LDL Cholesterol Direct 49 mg/dL (50-130) L 06/03/22 10:25 HDL Cholesterol 50 mg/dL (40-59) 06/03/22 10:25 Cholesterol/HDL Ratio 2.22 % 06/03/22 10:25 TSH 1.790 mlU/mL (0.270-4.200) 06/03/22 10:25 Perry/IV: Voiding Method Toilet Active Medications - Current Medications Current Medications: Generic Name Dose Route Start Last Admin Trade Name Freq PRN Reason Stop Dose Admin Atorvastatin Calcium 40 mg 06/04/22 22:00 06/09/22 21:05 Atorvastatin 40 Mg Tab PO 40 mg QHS NAM Administration Donepezil HCl 10 mg 06/04/22 22:00 06/09/22 21:05 Donepezil 10 Mg Tab PO 10 mg QHS NAM Administration Levetiracetam 500 mg 06/04/22 22:00 06/10/22 09:23 Levetiracetam 500 Mg Tab PO 500 mg BID NAM Administration Memantine 5 mg 06/05/22 10:00 06/10/22 09:24 Memantine 5 Mg Tab PO 5 mg QDAY NAM Administration Midodrine 2.5 mg 06/09/22 12:30 06/10/22 09:04 Midodrine 2.5 Mg Tab PO 2.5 mg TID@0800,1200,1600 NAM Administration Naproxen 500 mg 06/04/22 22:00 06/10/22 09:22 Naproxen 500 Mg Tab PO 500 mg BID NAM Administration Olanzapine 5 mg 06/05/22 10:00 06/10/22 09:23 Olanzapine 5 Mg Tab PO 5 mg QDAY NAM Administration Pantoprazole Sodium 20 mg 06/05/22 10:00 06/10/22 09:23 Pantoprazole 20 Mg Tab PO 20 mg QDAY NAM Administration Trazodone HCl 100 mg 06/04/22 22:00 06/09/22 21:05 Trazodone 100 Mg Tab PO 100 mg QHS NAM Administration Nutrition/Malnutrition Assess - Dietary Evaluation Nutrition/Malnutrition Findings: Nutrition Notes Start: 06/04/22 12:51 Freq: Status: Active Protocol: Document 06/04/22 12:51 [email or web address] (Rec: 06/04/22 12:58 [email or web address]) Nutrition Notes Need for Assessment generated from: Low BMI Initial or Follow up Assessment Current Diagnosis Hyperlipidemia Other Pertinent Diagnosis Schizophrenia, Suicidal ideation Current Diet Regular Labs/Tests Reviewed Pertinent Medications Reviewed Height 5 ft 7 in Weight 42.1 kg [place] Body Weight (kg) 67.27 BMI 14.5 Weight Status Underweight Subjective/Other Information Pt screened for low BMI. He has consumed 88% of 2 meals so far. Per MD H&P, pt with no recent wt changes. Burn Absent Trauma Absent Current % PO Good (75-100%) Minimum of two criteria No #1 Nutrition Diagnosis Underweight Etiology hx of schizophrenia, advanced age As Evidenced by Signs and Symptoms BMI 14.5 Is patient on ventilator? No Is Patient Ambulatory and/or Out of Bed Yes REE-([facility]-ambulatory/OOB) [ 1527.019 [id number]] Kcal/Kg value to use for calculation 45 Approximate Energy Requirements Using 1895 kcal/Kg Calculation Used for Recommendations Kcal/kg Additional Notes Pro needs 1.2-1.5g/k-63g/ day Fluid needs 1ml/kcal Nutrition Intervention Change Diet Order: Continue current diet order Add Supplement/Snack (indicate name/kcal Ensure High Protein BID /protein ) Provides kCal: 320 Provides Protein (gm) 32 Goal #1 PO intake of meals plus ONS to meet 100% energy and pro needs Goal #2 Wt maintenance and/or gain Anticipated Discharge Needs: High-calorie/high-protein diet ; 1-2 ONS daily for wt maintenance Follow-Up By: 06/11/22 Additional Comments F/U: stable intakes, wt
== END 2022-06-10 17:30 | disposition home or self-care (01) | DRG 885 ==
LOC: 3A 16:59 → UNDOADMIN 16:59 → 5A 22:08 → UNDOADMIN 22:08 → 5A 06-04 01:10
PROVIDERS: ADMIT Psychiatry & Neurology Psychiatry; ATTEND Psychiatry & Neurology Psychiatry
DX: F20.9 Schizophrenia, unspecified (principal); E78.00 Pure hypercholesterolemia, unspecified; F32.9 Major depressive disorder, single episode, unspecified; E44.0 Moderate protein-calorie malnutrition; F01.51 Vascular dementia, unspecified severity, with behavioral disturbance; I67.2 Cerebral atherosclerosis; I10 Essential (primary) hypertension; E78.5 Hyperlipidemia, unspecified; G40.909 Epilepsy, unspecified, not intractable, without status epilepticus; Z68.1 Body mass index [BMI] 19.9 or less, adult; Z82.49 Family history of ischemic heart disease and other diseases of the circulatory system; Z91.048 Other nonmedicinal substance allergy status; Z83.3 Family history of diabetes mellitus
CPT/HCPCS: 36415; 80053; 80061; 80307; 80320; 81001; 83036; 84443; 85025; 99283; G0378; J3490; G0480; U0003